=== PATIENT | female | born 1945 | race Caucasian/White ===

== ENCOUNTER 2021-10-28 14:31 | Observation (INO) | payer MEDICARE, OTHER ==
[2021-10-28] MEDS ORDERED: Sodium Chloride 0.9% 10 ML Syringe FLUSH PRN (15:00)
[2021-10-28] MEDS ORDERED: Sodium Chloride 0.9% 1,000 ML IV SCH ×3 (15:15→17:45)
--- NOTE | 2021-10-28 17:28 | EDM.PDOC ---
ED HPI GENERAL MEDICAL PROBLEM - General Chief Complaint: General Stated Complaint: FELL AT [facility] Time Seen by Provider: 10/28/21 14:45 Source of Information: Reports: Patient History Limitations: Reports: No Limitations - History of Present Illness INITIAL COMMENTS - FREE TEXT/NARRATIVE: Patient is a 76 YO WF who presented to the ED via EMS because she fell while at [facility]. She said her entire body just feel weak and her kegs gave out. There was no LOC after the fall and didn't sustain any injury. There is no headache, nausea or vomiting. No changes in bowel movements or urinary symptoms. - Related Data Allergies Allergy/AdvReac Type Severity Reaction Status Date / Time No Known Allergies Allergy Verified 02/21/19 13:20 Home Meds: Home Meds ALPRAZolam [Alprazolam] 0.25 mg PO BEDTIME 10/28/21 [History] Aspirin 81 mg PO DAILY 10/28/21 [History] Escitalopram Oxalate [Lexapro] 20 mg PO DAILY 10/28/21 [History] Famotidine 40 mg PO Q48H 10/28/21 [History] Gabapentin [Neurontin] 100 mg PO BID@08,12 10/28/21 [History] Gabapentin [Neurontin] 200 mg PO BEDTIME 10/28/21 [History] Levothyroxine [Synthroid] 50 mcg PO SUTUTHSA 10/28/21 [History] Levothyroxine [Synthroid] 75 mcg PO MOWEFR 10/28/21 [History] Omeprazole 20 mg PO Q48H 10/28/21 [History] Simvastatin 40 mg PO BEDTIME 10/28/21 [History] lisinopriL [Lisinopril] 10 mg PO DAILY 10/28/21 [History] traZODone 50 mg PO BEDTIME 10/28/21 [History] ED ROS GENERAL - Review of Systems Review Of Systems: See Below Constitutional: Reports: Weakness HEENT: Reports: No Symptoms Respiratory: Reports: No Symptoms Cardiovascular: Reports: No Symptoms Endocrine: Reports: No Symptoms GI/Abdominal: Reports: No Symptoms : Reports: No Symptoms Musculoskeletal: Reports: No Symptoms Skin: Reports: No Symptoms Neurological: Reports: Weakness Psychiatric: Reports: No Symptoms ED EXAM, GENERAL - Physical Exam Exam: See Below Exam Limited By: Other (have problem communicating) Eye Exam: Bilateral Eye: PERRL Ears: Normal External Exam, Normal Canal Nose: Normal Inspection, Normal Mucosa, No Blood Throat/Mouth: Normal Inspection, Normal Lips, Normal Teeth Head: Atraumatic, Normocephalic Neck: Normal Inspection, Supple, Non-Tender, Full Range of Motion Respiratory/Chest: No Respiratory Distress, Lungs Clear, Normal Breath Sounds, No Accessory Muscle Use, Chest Non-Tender Cardiovascular: Normal Peripheral Pulses, Regular Rate, Rhythm, No Edema, No Gallop, No JVD, No Murmur, No Rub GI/Abdominal: Normal Bowel Sounds, Soft, Non-Tender, No Organomegaly, No Distention Back Exam: Normal Inspection, Full Range of Motion Extremities: Normal Inspection, Normal Range of Motion, Non-Tender, No Pedal Edema Neurological: Alert, Oriented, CN II-XII Intact, Normal Cognition, Normal Gait, Normal Reflexes Psychiatric: Normal Affect Skin Exam: Warm #1 Interpretation EKG Date: 10/28/21 Time: 14:41 Rhythm: NSR Rate (Beats/Min): 66 [place]: Normal P-Wave: Present QRS: Normal ST-T: Normal QT: Normal OK/PQ Interval: 141 Comparison: NA - No Prior EKG EKG Interpretation Comments: NSR Course - Orders/Labs/Meds Orders: Active Orders 24 hr Category Date Time Status Patient Status [ADT] Routine ADT 10/28/21 17:37 Active Bladder Scan [RC] ASDIRECTED Care 10/28/21 17:26 Active Mckeon Catheter Insertion [Insert Urinary Catheter] [OM. Care 10/28/21 18:30 Ordered PC] Q24H Height and Weight [RC] DAILY Care 10/28/21 17:36 Active Intake and Output [RC] QSHIFT Care 10/28/21 17:39 Active Oxygen Therapy [RC] PRN Care 10/28/21 17:37 Active Pulse Oximetry [RC] PRN Care 10/28/21 17:40 Active Up With Assistance [RC] ASDIRECTED Care 10/28/21 17:36 Active Urinary Catheter Assessment [RC] QSHIFT Care 10/28/21 18:27 Ordered VTE/DVT Education [RC] Per Unit Routine Care 10/28/21 17:37 Active Vital Signs [RC] Q4H Care 10/28/21 17:37 Active Chest 1V Frontal [CR] Stat Exams 10/28/21 17:47 Taken BASIC METABOLIC PANEL,BMP [CHEM] AM Lab 10/29/21 05:11 Ordered CBC WITH AUTO DIFF [HEME] AM Lab 10/29/21 05:11 Ordered UA W/MICROSCOPIC [URIN] Stat Lab 10/28/21 15:00 Ordered Enoxaparin [Lovenox] Med 10/28/21 18:00 Active 30 mg SUBCUT Q24H Sodium Chloride 0.9% [Normal Saline] 1,000 ml Med 10/28/21 15:15 Active IV ASDIRECTED Sodium Chloride 0.9% [Normal Saline] 1,000 ml Med 10/28/21 16:30 Active IV ASDIRECTED Sodium Chloride 0.9% [Normal Saline] 1,000 ml Med 10/28/21 17:45 Active IV ASDIRECTED Sodium Chloride 0.9% [Normal Saline] 1,000 ml Med 10/28/21 17:45 Active IV ASDIRECTED Sodium Chloride 0.9% [Saline Flush] Med 10/28/21 15:00 Active 10 ml FLUSH ASDIRECTED PRN Saline Lock Insert [OM.PC] Routine Oth 10/28/21 15:00 Ordered Sequential Compression Device [OM.PC] Per Unit Routine Oth 10/28/21 17:41 Ordered Resuscitation Status Routine Resus Stat 10/28/21 17:36 Ordered EKG 12 Lead [EK] Routine Ther 10/28/21 15:00 Ordered Medication Orders Enoxaparin Sodium (Enoxaparin 30 Mg/0.3 Ml Syringe) 30 mg SUBCUT Q24H PORFIRIO Sodium Chloride (Normal Saline) 1,000 mls @ 999 mls/hr IV ASDIRECTED PORFIRIO Last Admin: 10/28/21 15:08 Dose: 999 mls/hr Documented by: JAVIESCHE Sodium Chloride (Normal Saline) 1,000 mls @ 999 mls/hr IV ASDIRECTED PORFIRIO Last Admin: 10/28/21 16:30 Dose: 999 mls/hr Documented by: WIESCHE Sodium Chloride (Normal Saline) 1,000 mls @ 125 mls/hr IV ASDIRECTED PORFIRIO Last Admin: 10/28/21 17:31 Dose: 125 mls/hr Documented by: WIESCHE Sodium Chloride (Normal Saline) 1,000 mls @ 125 mls/hr IV ASDIRECTED PORFIRIO Sodium Chloride (Sodium Chloride 0.9% 10 Ml Syringe) 10 ml FLUSH ASDIRECTED PRN PRN Reason: Keep Vein Open Last Admin: 10/28/21 14:38 Dose: 10 ml Documented by: CAROL Labs: Laboratory Tests 10/28/21 10/28/21 10/28/21 Range/Units 15:15 15:15 15:15 WBC 7.7 (3.0-10.3) x10-3/uL RBC 4.07 (3.60-5.20) x10(6)uL Hgb 12.6 (11.4-15.5) g/dL Hct 38.0 (34.2-48.2) % MCV 93.4 (76.7-100.5) fL MCH 31.1 (23.9-33.9) pg MCHC 33.3 (31.9-34.8) g/dL RDW 13.1 (12.3-16.5) % Plt Count 193 (151-488) x10(3)uL MPV 9.5 (7.1-12.4) fL Neut % (Auto) 65.5 (30.8-76.2) % Lymph % (Auto) 25.9 (18.4-52.1) % [place] % (Auto) 6.1 (4.4-15.7) % Eos % (Auto) 1.7 (0.6-8.1) % Baso % (Auto) 0.8 (0.2-1.5) % Neut # (Auto) 5.1 (1.5-6.3) x10-3/uL Lymph # (Auto) 2.0 (1.0-4.4) x10-3/uL [place] # (Auto) 0.5 (0.3-1.0) x10-3/uL Eos # (Auto) 0.1 (0.0-0.8) x10-3/uL Baso # (Auto) 0.1 (0.0-0.1) x10-3/uL Sodium 138 (135-145) mmol/L Potassium 4.0 (3.5-5.3) mmol/L Chloride 102 (100-110) mmol/L Carbon Dioxide 20 L (21-32) mmol/L BUN 143 H* (7-18) mg/dL Creatinine 5.5 H* (0.55-1.02) mg/dL Est Cr Clr Drug Dosing TNP Estimated GFR (MDRD) 8 L (>60) BUN/Creatinine Ratio 26.0 H (9-20) Glucose 112 (80-116) mg/dL Lactic Acid (0.4-2.0) mmol/L Calcium 9.5 (8.6-10.2) mg/dL Total Bilirubin 0.3 (0.1-1.3) mg/dL AST 21 (5-25) IU/L ALT 25 (12-36) U/L Alkaline Phosphatase 77 (56-112) IU/L Troponin I 32.1 (4.0-60.3) pg/mL Total Protein 7.5 (6.0-8.0) g/dL Albumin 4.4 (3.2-4.6) g/dL Globulin 3.1 g/dL Albumin/Globulin Ratio 1.4 SARS-CoV-2 RNA (IDALIA) (NEGATIVE) 10/28/21 10/28/21 Range/Units 15:15 16:25 WBC (3.0-10.3) x10-3/uL RBC (3.60-5.20) x10(6)uL Hgb (11.4-15.5) g/dL Hct (34.2-48.2) % MCV (76.7-100.5) fL MCH (23.9-33.9) pg MCHC (31.9-34.8) g/dL RDW (12.3-16.5) % Plt Count (151-488) x10(3)uL MPV (7.1-12.4) fL Neut % (Auto) (30.8-76.2) % Lymph % (Auto) (18.4-52.1) % [place] % (Auto) (4.4-15.7) % Eos % (Auto) (0.6-8.1) % Baso % (Auto) (0.2-1.5) % Neut # (Auto) (1.5-6.3) x10-3/uL Lymph # (Auto) (1.0-4.4) x10-3/uL [place] # (Auto) (0.3-1.0) x10-3/uL Eos # (Auto) (0.0-0.8) x10-3/uL Baso # (Auto) (0.0-0.1) x10-3/uL Sodium (135-145) mmol/L Potassium (3.5-5.3) mmol/L Chloride (100-110) mmol/L Carbon Dioxide (21-32) mmol/L BUN (7-18) mg/dL Creatinine (0.55-1.02) mg/dL Est Cr Clr Drug Dosing Estimated GFR (MDRD) (>60) BUN/Creatinine Ratio (9-20) Glucose (80-116) mg/dL Lactic Acid 0.8 (0.4-2.0) mmol/L Calcium (8.6-10.2) mg/dL Total Bilirubin (0.1-1.3) mg/dL AST (5-25) IU/L ALT (12-36) U/L Alkaline Phosphatase (56-112) IU/L Troponin I (4.0-60.3) pg/mL Total Protein (6.0-8.0) g/dL Albumin (3.2-4.6) g/dL Globulin g/dL Albumin/Globulin Ratio SARS-CoV-2 RNA (IDALIA) Negative (NEGATIVE) Meds: Medications Generic Name Dose Route Start Last Admin Trade Name Freq PRN Reason Stop Dose Admin Enoxaparin Sodium 30 mg 10/28/21 18:00 Enoxaparin 30 Mg/0.3 Ml Syringe SUBCUT Q24H PORFIRIO Sodium Chloride 1,000 mls @ 999 mls/hr 10/28/21 15:15 10/28/21 15:08 Normal Saline IV 999 mls/hr ASDIRECTED PORFIRIO Administration Sodium Chloride 1,000 mls @ 999 mls/hr 10/28/21 16:30 10/28/21 16:30 Normal Saline IV 999 mls/hr ASDIRECTED PORFIRIO Administration Sodium Chloride 1,000 mls @ 125 mls/hr 10/28/21 17:45 10/28/21 17:31 Normal Saline IV 125 mls/hr ASDIRECTED PORFIRIO Administration Sodium Chloride 1,000 mls @ 125 mls/hr 10/28/21 17:45 Normal Saline IV ASDIRECTED PORFIRIO Sodium Chloride 10 ml 10/28/21 15:00 10/28/21 14:38 Sodium Chloride 0.9% 10 Ml Syringe FLUSH 10 ml ASDIRECTED PRN Administration Keep Vein Open Discontinued Medications Generic Name Dose Route Start Last Admin Trade Name Freq PRN Reason Stop Dose Admin Enoxaparin Sodium 30 mg 10/28/21 17:45 Enoxaparin 30 Mg/0.3 Ml Syringe SUBCUT Q24H [facility] Departure - Departure Time of Disposition: 15:00 Disposition: Refer to Observation Condition: Good Clinical Impression: Fall, Dehydration, SALUD (acute kidney injury), Urinary retention - Discharge Information Referrals: Eva Calderon, [employer] [Primary Care Provider] - Forms: ED Department Discharge - My Orders Last 24 Hours: My Active Orders 10/28/21 15:00 UA W/MICROSCOPIC [URIN] Stat Sodium Chloride 0.9% [Saline Flush] 10 ml FLUSH ASDIRECTED PRN Saline Lock Insert [OM.PC] Routine EKG 12 Lead [EK] Routine 10/28/21 15:15 Sodium Chloride 0.9% [Normal Saline] 1,000 ml IV ASDIRECTED 10/28/21 16:30 Sodium Chloride 0.9% [Normal Saline] 1,000 ml IV ASDIRECTED 10/28/21 17:26 Bladder Scan [RC] ASDIRECTED 10/28/21 17:36 Height and Weight [RC] DAILY Up With Assistance [RC] ASDIRECTED Resuscitation Status Routine 10/28/21 17:37 Patient Status [ADT] Routine Oxygen Therapy [RC] PRN VTE/DVT Education [RC] Per Unit Routine Vital Signs [RC] Q4H 10/28/21 17:39 Intake and Output [RC] QSHIFT 10/28/21 17:40 Pulse Oximetry [RC] PRN 10/28/21 17:41 Sequential Compression Device [OM.PC] Per Unit Routine 10/28/21 17:45 Sodium Chloride 0.9% [Normal Saline] 1,000 ml IV ASDIRECTED Sodium Chloride 0.9% [Normal Saline] 1,000 ml IV ASDIRECTED 10/28/21 17:47 Chest 1V Frontal [CR] Stat 10/28/21 18:00 Enoxaparin [Lovenox] 30 mg SUBCUT Q24H 10/28/21 18:27 Urinary Catheter Assessment [RC] QSHIFT 10/28/21 18:30 Mckeon Catheter Insertion [Insert Urinary Catheter] [OM.PC] Q24H 10/29/21 05:11 BASIC METABOLIC PANEL,BMP [CHEM] AM CBC WITH AUTO DIFF [HEME] AM - Assessment/Plan Last 24 Hours: My Active Orders 10/28/21 15:00 UA W/MICROSCOPIC [URIN] Stat Sodium Chloride 0.9% [Saline Flush] 10 ml FLUSH ASDIRECTED PRN Saline Lock Insert [OM.PC] Routine EKG 12 Lead [EK] Routine 10/28/21 15:15 Sodium Chloride 0.9% [Normal Saline] 1,000 ml IV ASDIRECTED 10/28/21 16:30 Sodium Chloride 0.9% [Normal Saline] 1,000 ml IV ASDIRECTED 10/28/21 17:26 Bladder Scan [RC] ASDIRECTED 10/28/21 17:36 Height and Weight [RC] DAILY Up With Assistance [RC] ASDIRECTED Resuscitation Status Routine 10/28/21 17:37 Patient Status [ADT] Routine Oxygen Therapy [RC] PRN VTE/DVT Education [RC] Per Unit Routine Vital Signs [RC] Q4H 10/28/21 17:39 Intake and Output [RC] QSHIFT 10/28/21 17:40 Pulse Oximetry [RC] PRN 10/28/21 17:41 Sequential Compression Device [OM.PC] Per Unit Routine 10/28/21 17:45 Sodium Chloride 0.9% [Normal Saline] 1,000 ml IV ASDIRECTED Sodium Chloride 0.9% [Normal Saline] 1,000 ml IV ASDIRECTED 10/28/21 17:47 Chest 1V Frontal [CR] Stat 10/28/21 18:00 Enoxaparin [Lovenox] 30 mg SUBCUT Q24H 10/28/21 18:27 Urinary Catheter Assessment [RC] QSHIFT 10/28/21 18:30 Mckeon Catheter Insertion [Insert Urinary Catheter] [OM.PC] Q24H 10/29/21 05:11 BASIC METABOLIC PANEL,BMP [CHEM] AM CBC WITH AUTO DIFF [HEME] AM
[2021-10-28] MEDS: Sodium Chloride 0.9% 1,000 ML IV SCH (17:31)
[2021-10-28] MEDS ORDERED: Enoxaparin 30 MG/0.3 ML Syringe SUBCUT SCH ×3 (17:45→21:00)
[2021-10-28] MEDS ORDERED: Levothyroxine 50 MCG Tab**PT OWN PO SCH (19:00)
[2021-10-28] MEDS ORDERED: ALPRAZolam 0.25 MG Tab PO SCH (21:00)
[2021-10-28] MEDS ORDERED: SIMVASTATIN 40 MG PO SCH (21:00)
[2021-10-28] MEDS ORDERED: Gabapentin 100 MG Cap *PTOM PO SCH (21:00)
[2021-10-29] MEDS: Sodium Chloride 0.9% 1,000 ML IV SCH ×2 (01:33→09:51)
[2021-10-29] MEDS ORDERED: Levothyroxine 50 MCG Tab**PT OWN PO SCH (07:00)
[2021-10-29] MEDS ORDERED: Famotidine 20 MG Tab *PTOM PO SCH (08:00)
[2021-10-29] MEDS: GABAPENTIN 100 MG PO SCH ×2 (08:48→12:20)
[2021-10-29] MEDS ORDERED: Escitalopram 20 MG Tab *PTOM PO SCH (09:00)
[2021-10-29] MEDS ORDERED: Heparin Sodium 5,000 Units/ML Vial SUBCUT SCH (09:00)
[2021-10-29] MEDS ORDERED: Lisinopril 10 MG Tab *PTOM PO SCH (09:00)
--- NOTE | 2021-10-29 09:52 | PCM.HP.2 ---
H&P History of Present Illness - General Date of Service: 10/29/21 Admit Problem/Dx: Admission Diagnosis/Problem Admission Diagnosis/Problem Fall Source of Information: Patient, EMS History Limitations: Reports: No Limitations (Speech impediment) - History of Present Illness Initial Comments - Free Text/Narative: This is a 76-year-old female patient that has trouble speech. I was told that her speech is baseline for her at this time. She was at [facility] and she felt weak and her legs gave out and she fell. She was brought to the ER by EMS. No loss of conscious after the fall and she did not sustain any injuries. She denies fevers, chills, chest pain, shortness of breath, dysuria, pyuria, hematuria. She was found to have acute kidney injury with a creatinine over 5.0. She denies any NSAID use. She uses Tylenol arthritis. - Related Data Allergies/Adverse Reactions: Allergies Allergy/AdvReac Type Severity Reaction Status Date / Time No Known Allergies Allergy Verified 02/21/19 13:20 Home Medications: Home Meds ALPRAZolam [Alprazolam] 0.25 mg PO BEDTIME 10/28/21 [History] Aspirin 81 mg PO DAILY 10/28/21 [History] Escitalopram Oxalate [Lexapro] 20 mg PO DAILY 10/28/21 [History] Famotidine 40 mg PO Q48H 10/28/21 [History] Gabapentin [Neurontin] 100 mg PO BID@08,12 10/28/21 [History] Gabapentin [Neurontin] 200 mg PO BEDTIME 10/28/21 [History] Levothyroxine [Synthroid] 50 mcg PO SUTUTHSA 10/28/21 [History] Levothyroxine [Synthroid] 75 mcg PO MOWEFR 10/28/21 [History] Omeprazole 20 mg PO Q48H 10/28/21 [History] Simvastatin 40 mg PO BEDTIME 10/28/21 [History] lisinopriL [Lisinopril] 10 mg PO DAILY 10/28/21 [History] traZODone 50 mg PO BEDTIME 10/28/21 [History] Past Medical History - Past Health History Medical/Surgical History: Denies Medical/Surgical History Social & Family History - Tobacco Use Tobacco Use Status *Q: Never Tobacco User Second Hand Smoke Exposure: No - Caffeine Use Caffeine Use: Reports: None - Recreational Drug Use Recreational Drug Use: No H&P Review of Systems - Review of Systems: Review Of Systems: See Below General: Reports: Weakness HEENT: Reports: No Symptoms Pulmonary: Reports: No Symptoms Cardiovascular: Reports: No Symptoms Gastrointestinal: Reports: No Symptoms Genitourinary: Reports: No Symptoms Musculoskeletal: Reports: No Symptoms Skin: Reports: No Symptoms Psychiatric: Reports: No Symptoms Neurological: Reports: No Symptoms Hematologic/Lymphatic: Reports: No Symptoms Immunologic: Reports: No Symptoms Exam - Exam Exam: See Below - Vital Signs Vital Signs: Last Vital Signs Temp 98 F 10/29/21 05:00 Pulse 67 10/29/21 05:00 Resp 16 10/29/21 05:00 BP 119/50 L 10/29/21 08:48 Pulse Ox 96 10/29/21 05:00 Weight: 197 lb - Exam General: Alert, Oriented, Cooperative HEENT: PERRLA, Posterior Pharynx Clear, TMs Clear Neck: Supple, Trachea Midline Lungs: Clear to Auscultation, Normal Respiratory Effort Cardiovascular: Regular Rate, Regular Rhythm. No: Systolic Murmur GI/Abdominal Exam: Normal Bowel Sounds, Soft, Non-Tender, No Organomegaly, No Distention, No Abnormal Bruit, No Mass Back Exam: Normal Inspection, Full Range of Motion Extremities: Normal Inspection, Normal Range of Motion, No Pedal Edema, Other (Normal strength in all 4 extremities. I did not stand her.) Skin: Warm, Dry, Intact Neurological: Normal Tone. No: Normal Speech Neuro Extensive - Mental Status: Alert, Oriented x3, Normal Cognition Psychiatric: Alert, Normal Affect, Normal Mood - Patient Data Lab Results Last 24 hrs: Laboratory Results - last 24 hr 10/28/21 10/28/21 10/28/21 Range/Units 15:15 15:15 15:15 WBC 7.7 (3.0-10.3) x10-3/uL RBC 4.07 (3.60-5.20) x10(6)uL Hgb 12.6 (11.4-15.5) g/dL Hct 38.0 (34.2-48.2) % MCV 93.4 (76.7-100.5) fL MCH 31.1 (23.9-33.9) pg MCHC 33.3 (31.9-34.8) g/dL RDW 13.1 (12.3-16.5) % Plt Count 193 (151-488) x10(3)uL MPV 9.5 (7.1-12.4) fL Neut % (Auto) 65.5 (30.8-76.2) % Lymph % (Auto) 25.9 (18.4-52.1) % Cassia % (Auto) 6.1 (4.4-15.7) % Eos % (Auto) 1.7 (0.6-8.1) % Baso % (Auto) 0.8 (0.2-1.5) % Neut # (Auto) 5.1 (1.5-6.3) x10-3/uL Lymph # (Auto) 2.0 (1.0-4.4) x10-3/uL Cassia # (Auto) 0.5 (0.3-1.0) x10-3/uL Eos # (Auto) 0.1 (0.0-0.8) x10-3/uL Baso # (Auto) 0.1 (0.0-0.1) x10-3/uL Sodium 138 (135-145) mmol/L Potassium 4.0 (3.5-5.3) mmol/L Chloride 102 (100-110) mmol/L Carbon Dioxide 20 L (21-32) mmol/L BUN 143 H* (7-18) mg/dL Creatinine 5.5 H* (0.55-1.02) mg/dL Est Cr Clr Drug Dosing TNP Estimated GFR (MDRD) 8 L (>60) BUN/Creatinine Ratio 26.0 H (9-20) Glucose 112 (80-116) mg/dL Lactic Acid (0.4-2.0) mmol/L Calcium 9.5 (8.6-10.2) mg/dL Total Bilirubin 0.3 (0.1-1.3) mg/dL AST 21 (5-25) IU/L ALT 25 (12-36) U/L Alkaline Phosphatase 77 (56-112) IU/L Troponin I 32.1 (4.0-60.3) pg/mL Total Protein 7.5 (6.0-8.0) g/dL Albumin 4.4 (3.2-4.6) g/dL Globulin 3.1 g/dL Albumin/Globulin Ratio 1.4 Urine Color (YELLOW) Urine Appearance (CLEAR) Urine pH (5.0-6.5) Ur Specific Elizabeth (1.010-1.025) Urine Protein (NEGATIVE) mg/dL Urine Glucose (UA) (NORMAL) mg/dL Urine Ketones (NEGATIVE) mg/dL Urine Occult Blood (NEGATIVE) Urine Nitrite (NEGATIVE) Urine Bilirubin (NEGATIVE) Urine Urobilinogen (NEGATIVE) mg/dL Ur Leukocyte Esterase (NEGATIVE) Urine RBC (0-5) Urine WBC (0-5) Ur Squamous Epith Cells (NS,R,O) Urine Bacteria (NS) Urine Mucus (NS) SARS-CoV-2 RNA (IDALIA) (NEGATIVE) 10/28/21 10/28/21 10/29/21 Range/Units 15:15 16:25 01:57 WBC (3.0-10.3) x10-3/uL RBC (3.60-5.20) x10(6)uL Hgb (11.4-15.5) g/dL Hct (34.2-48.2) % MCV (76.7-100.5) fL MCH (23.9-33.9) pg MCHC (31.9-34.8) g/dL RDW (12.3-16.5) % Plt Count (151-488) x10(3)uL MPV (7.1-12.4) fL Neut % (Auto) (30.8-76.2) % Lymph % (Auto) (18.4-52.1) % Cassia % (Auto) (4.4-15.7) % Eos % (Auto) (0.6-8.1) % Baso % (Auto) (0.2-1.5) % Neut # (Auto) (1.5-6.3) x10-3/uL Lymph # (Auto) (1.0-4.4) x10-3/uL Cassia # (Auto) (0.3-1.0) x10-3/uL Eos # (Auto) (0.0-0.8) x10-3/uL Baso # (Auto) (0.0-0.1) x10-3/uL Sodium (135-145) mmol/L Potassium (3.5-5.3) mmol/L Chloride (100-110) mmol/L Carbon Dioxide (21-32) mmol/L BUN (7-18) mg/dL Creatinine (0.55-1.02) mg/dL Est Cr Clr Drug Dosing Estimated GFR (MDRD) (>60) BUN/Creatinine Ratio (9-20) Glucose (80-116) mg/dL Lactic Acid 0.8 (0.4-2.0) mmol/L Calcium (8.6-10.2) mg/dL Total Bilirubin (0.1-1.3) mg/dL AST (5-25) IU/L ALT (12-36) U/L Alkaline Phosphatase (56-112) IU/L Troponin I (4.0-60.3) pg/mL Total Protein (6.0-8.0) g/dL Albumin (3.2-4.6) g/dL Globulin g/dL Albumin/Globulin Ratio Urine Color Yellow (YELLOW) Urine Appearance Slightly cloudy (CLEAR) Urine pH 5.0 (5.0-6.5) Ur Specific Elizabeth 1.020 (1.010-1.025) Urine Protein Negative (NEGATIVE) mg/dL Urine Glucose (UA) Normal (NORMAL) mg/dL Urine Ketones Negative (NEGATIVE) mg/dL Urine Occult Blood Moderate H (NEGATIVE) Urine Nitrite Negative (NEGATIVE) Urine Bilirubin Negative (NEGATIVE) Urine Urobilinogen Normal (NEGATIVE) mg/dL Ur Leukocyte Esterase Negative (NEGATIVE) Urine RBC 0-5 (0-5) Urine WBC 0-5 (0-5) Ur Squamous Epith Cells Few H (NS,R,O) Urine Bacteria Few H (NS) Urine Mucus Few H (NS) SARS-CoV-2 RNA (IDALIA) Negative (NEGATIVE) 10/29/21 10/29/21 Range/Units 06:16 06:16 WBC 5.6 (3.0-10.3) x10-3/uL RBC 3.48 L (3.60-5.20) x10(6)uL Hgb 10.9 L (11.4-15.5) g/dL Hct 32.5 L (34.2-48.2) % MCV 93.6 (76.7-100.5) fL MCH 31.5 (23.9-33.9) pg MCHC 33.6 (31.9-34.8) g/dL RDW 13.2 (12.3-16.5) % Plt Count 162 (151-488) x10(3)uL MPV 9.1 (7.1-12.4) fL Neut % (Auto) 50.3 (30.8-76.2) % Lymph % (Auto) 37.2 (18.4-52.1) % Cassia % (Auto) 7.2 (4.4-15.7) % Eos % (Auto) 4.2 (0.6-8.1) % Baso % (Auto) 1.1 (0.2-1.5) % Neut # (Auto) 2.8 (1.5-6.3) x10-3/uL Lymph # (Auto) 2.1 (1.0-4.4) x10-3/uL Cassia # (Auto) 0.4 (0.3-1.0) x10-3/uL Eos # (Auto) 0.2 (0.0-0.8) x10-3/uL Baso # (Auto) 0.1 (0.0-0.1) x10-3/uL Sodium 145 (135-145) mmol/L Potassium 3.7 (3.5-5.3) mmol/L Chloride 113 H D (100-110) mmol/L Carbon Dioxide 18 L (21-32) mmol/L BUN 118 H* (7-18) mg/dL Creatinine 3.8 H* (0.55-1.02) mg/dL Est Cr Clr Drug Dosing 10.58 Estimated GFR (MDRD) 12 L (>60) BUN/Creatinine Ratio 31.1 H (9-20) Glucose 93 (80-116) mg/dL Lactic Acid (0.4-2.0) mmol/L Calcium 8.0 L (8.6-10.2) mg/dL Total Bilirubin (0.1-1.3) mg/dL AST (5-25) IU/L ALT (12-36) U/L Alkaline Phosphatase (56-112) IU/L Troponin I (4.0-60.3) pg/mL Total Protein (6.0-8.0) g/dL Albumin (3.2-4.6) g/dL Globulin g/dL Albumin/Globulin Ratio Urine Color (YELLOW) Urine Appearance (CLEAR) Urine pH (5.0-6.5) Ur Specific Elizabeth (1.010-1.025) Urine Protein (NEGATIVE) mg/dL Urine Glucose (UA) (NORMAL) mg/dL Urine Ketones (NEGATIVE) mg/dL Urine Occult Blood (NEGATIVE) Urine Nitrite (NEGATIVE) Urine Bilirubin (NEGATIVE) Urine Urobilinogen (NEGATIVE) mg/dL Ur Leukocyte Esterase (NEGATIVE) Urine RBC (0-5) Urine WBC (0-5) Ur Squamous Epith Cells (NS,R,O) Urine Bacteria (NS) Urine Mucus (NS) SARS-CoV-2 RNA (IDALIA) (NEGATIVE) Result Diagrams: 10/29/21 06:16 10/29/21 06:16 Sepsis Event Note - Evaluation Sepsis Screening Result: No Definite Risk - Focused Exam Vital Signs: Vital Signs Temp Pulse Resp BP BP Pulse Ox 10/29/21 08:48 119/50 L 10/29/21 05:00 98 F 67 16 100/55 L 96 - Problem List (1) Palliative care status SNOMED Code(s): 865186397 ICD Code: Z51.5 - ENCOUNTER FOR PALLIATIVE CARE Status: Acute Current Visit: Yes (2) SALUD (acute kidney injury) SNOMED Code(s): 49385732, 94664893 ICD Code: N17.9 - ACUTE KIDNEY FAILURE, UNSPECIFIED Status: Acute Current Visit: Yes (3) Dehydration SNOMED Code(s): 05369541 ICD Code: E86.0 - DEHYDRATION Status: Acute Current Visit: Yes (4) Fall SNOMED Code(s): 1731042, 219314140 ICD Code: W19.XXXA - UNSPECIFIED FALL, INITIAL ENCOUNTER Status: Acute Current Visit: Yes Problem List Initiated/Reviewed/Updated: Yes Orders Last 24hrs: Active Orders 24 hr Category Date Time Status Patient Status [ADT] Routine ADT 10/28/21 17:37 Active Bladder Scan [RC] ASDIRECTED Care 10/28/21 17:26 Active Mckeon Catheter Insertion [Insert Urinary Catheter] [OM. Care 10/28/21 18:30 Ordered PC] Q24H Height and Weight [RC] 0600 Care 10/28/21 17:36 Active Intake and Output [RC] 22,06,14 Care 10/28/21 17:39 Active Oxygen Therapy [RC] PRN Care 10/28/21 17:37 Active Pulse Oximetry [RC] PRN Care 10/28/21 17:40 Active Up With Assistance [RC] ASDIRECTED Care 10/28/21 17:36 Active Urinary Catheter Assessment [RC] QSHIFT Care 10/28/21 18:27 Active VTE/DVT Education [RC] Per Unit Routine Care 10/28/21 17:37 Active Vital Signs [RC] Q4H Care 10/28/21 17:37 Active Regular Diet [DIET] Diet 10/29/21 Breakfast Active Chest 1V Frontal [CR] Stat Exams 10/28/21 17:47 Taken ALPRAZolam [Xanax] Med 10/28/21 21:00 Active 0.25 mg PO BEDTIME Enoxaparin [Lovenox] Med 10/28/21 21:00 Active 30 mg SUBCUT Q24H Escitalopram [Lexapro] Med 10/29/21 09:00 Active 20 mg PO DAILY Famotidine [Pepcid] Med 10/29/21 08:00 Active 40 mg PO Q48H Gabapentin [Neurontin] Med 10/29/21 08:00 Active 100 mg PO BID@08,12 Gabapentin [Neurontin] Med 10/28/21 21:00 Active 200 mg PO BEDTIME Levothyroxine [Synthroid] Med 10/28/21 19:00 Active 50 mcg PO SuTuThSa@0700 Levothyroxine [Synthroid] Med 10/29/21 07:00 Active 75 mcg PO MoWeFr@0700 Omeprazole [Omeprazole] Med 10/30/21 08:00 Active 20 mg PO Q48H Simvastatin [Zocor] Med 10/28/21 21:00 Active 40 mg PO BEDTIME Sodium Chloride 0.9% [Normal Saline] 1,000 ml Med 10/28/21 15:15 Active IV ASDIRECTED Sodium Chloride 0.9% [Normal Saline] 1,000 ml Med 10/28/21 16:30 Active IV ASDIRECTED Sodium Chloride 0.9% [Normal Saline] 1,000 ml Med 10/28/21 17:45 Active IV ASDIRECTED Sodium Chloride 0.9% [Normal Saline] 1,000 ml Med 10/28/21 17:45 Active IV ASDIRECTED Sodium Chloride 0.9% [Saline Flush] Med 10/28/21 15:00 Active 10 ml FLUSH ASDIRECTED PRN lisinopriL [Prinivil] Med 10/29/21 09:00 Active 10 mg PO DAILY Saline Lock Insert [OM.PC] Routine Oth 10/28/21 15:00 Ordered Sequential Compression Device [OM.PC] Per Unit Routine Oth 10/28/21 17:41 Ordered Resuscitation Status Routine Resus Stat 10/28/21 17:36 Ordered EKG 12 Lead [EK] Routine Ther 10/28/21 15:00 Ordered Medication Orders Alprazolam (Alprazolam 0.25 Mg Tab) 0.25 mg PO BEDTIME [facility], [facility] Last Admin: 10/28/21 21:00 Dose: Not Given Documented by: JANIS Enoxaparin Sodium (Enoxaparin 30 Mg/0.3 Ml Syringe) 30 mg SUBCUT Q24H [facility], [facility]1983 Last Admin: 10/28/21 21:23 Dose: 30 mg Documented by: JANIS Escitalopram Oxalate (Escitalopram 20 Mg Tab *Ptom) 20 mg PO DAILY [facility] Last Admin: 10/29/21 08:47 Dose: 20 mg Documented by: HARLEEN Famotidine (Famotidine 20 Mg Tab *Ptom) 40 mg PO Q48H [facility] Last Admin: 10/29/21 08:47 Dose: 40 mg Documented by: HARLEEN Gabapentin (Gabapentin 100 Mg *Ptom) 100 mg PO BID@08,12 [facility] Last Admin: 10/29/21 08:48 Dose: 100 mg Documented by: HARLEEN Gabapentin (Gabapentin 100 Mg Cap *Ptom) 200 mg PO BEDTIME [facility]1983 Last Admin: 10/28/21 21:00 Dose: Not Given Documented by: JANIS Sodium Chloride (Normal Saline) 1,000 mls @ 999 mls/hr IV ASDIRECTED [facility], [facility]1983 Last Admin: 10/28/21 15:08 Dose: 999 mls/hr Documented by: CAROL Sodium Chloride (Normal Saline) 1,000 mls @ 999 mls/hr IV ASDIRECTED [facility], [facility] Last Admin: 10/28/21 16:30 Dose: 999 mls/hr Documented by: CAROL Sodium Chloride (Normal Saline) 1,000 mls @ 125 mls/hr IV ASDIRECTED [facility] Last Admin: 10/29/21 01:33 Dose: 125 mls/hr Documented by: Infusion: 10/29/21 01:31 Dose: 125 mls/hr Documented by: Admin: 10/28/21 17:31 Dose: 125 mls/hr Documented by: CAROL Sodium Chloride (Normal Saline) 1,000 mls @ 125 mls/hr IV ASDIRECTED [facility] Levothyroxine Sodium (Levothyroxine 50 Mcg TabPt Own) 50 mcg PO SuTuThSa@0700 [facility] Last Admin: 10/28/21 21:00 Dose: Not Given Documented by: JANIS Levothyroxine Sodium (Levothyroxine 50 Mcg TabPt Own) 75 mcg PO MoWeFr@0700 [facility] Last Admin: 10/29/21 06:33 Dose: 75 mcg Documented by: JANIS Lisinopril (Lisinopril 10 Mg Tab *Ptom) 10 mg PO DAILY [facility] Last Admin: 10/29/21 08:48 Dose: 10 mg Documented by: HARLEEN Omeprazole 20 Mg Cap (.Cr *Ptom) 20 mg PO Q48H [facility] Simvastatin (Simvastatin 40 Mg *Ptom) 40 mg PO BEDTIME [facility] Last Admin: 10/28/21 21:00 Dose: Not Given Documented by: JANIS Sodium Chloride (Sodium Chloride 0.9% 10 Ml Syringe) 10 ml FLUSH ASDIRECTED PRN PRN Reason: Keep Vein Open Last Admin: 10/28/21 14:38 Dose: 10 ml Documented by: CAROL Assessment/Plan Comment:: . Admit to observation. 2. Regular diet 3. IV fluids 4. Mckeon catheter to monitor urine output 5. Lovenox for DVT prophylaxis that will be dosed by pharmacy. 6. Up with assist. 7. Recheck creatinine at the end of the day. 8. Hold lisinopril and review medications that are nephrotoxic. 9. Get old records from [facility] for her past medical history. Difficult getting a history from her today because of her speech impediment. - Mortality Measure Prognosis:: Good
--- NOTE | 2021-10-29 17:23 | PCM.DCSUM1 ---
Discharge Summary - Hospital Course Free Text/Narrative:: Hospital course-patient was admitted and was given boluses of fluid. She felt better by the time I saw her she was feeling good. Her creatinine started out at 5.5 and by the morning went to 3.8. Patient was adamant she wanted to go home in the morning. I told her wait to the end of the day. Rechecked her creatinine was 3.2. Calcium and hemoglobin little low after fluids. Patient ambulated without any difficulty and had no problems with food intake. I was able to retrieve the last note that she had at . And her creatinine there was 3.34 and BUN was 61 on 10/22/2021. I do not have any information that I kidney work-up has been started. On January 18, 2021 her creatinine was 0.9. Patient denies using any nephrotoxic drugs including NSAIDs. Brief History: This is a 76-year-old female patient that has trouble speech. I was told that her speech is baseline for her at this time. She was at [facility] and she felt weak and her legs gave out and she fell. She was brought to the ER by EMS. No loss of conscious after the fall and she did not sustain any injuries. She denies fevers, chills, chest pain, shortness of breath, dysuria, pyuria, hematuria. She was found to have acute kidney injury with a creatinine over 5.0. She denies any NSAID use. She uses Tylenol arthritis. Diagnosis: Stroke: No - Discharge Data Discharge Date: 10/29/21 Discharge Disposition: Home, Self-Care 01 Condition: Good - Referral to Home Health Primary Care Physician: Eva Calderon NP - Discharge Diagnosis/Problem(s) (1) Palliative care status SNOMED Code(s): 721526061 ICD Code: Z51.5 - ENCOUNTER FOR PALLIATIVE CARE Status: Acute Current Visit: Yes (2) SALUD (acute kidney injury) SNOMED Code(s): 97374176, 01413214 ICD Code: N17.9 - ACUTE KIDNEY FAILURE, UNSPECIFIED Status: Acute Current Visit: Yes (3) Dehydration SNOMED Code(s): 44767899 ICD Code: E86.0 - DEHYDRATION Status: Acute Current Visit: Yes (4) Fall SNOMED Code(s): 0232835, 292330393 ICD Code: W19.XXXA - UNSPECIFIED FALL, INITIAL ENCOUNTER Status: Acute Current Visit: Yes - Patient Instructions Diet: Regular Diet as Tolerated Activity: As Tolerated Driving: May Drive Today Showering/Bathing: May Shower Notify Provider of: Increased Pain Other/Special Instructions: 1. Hold lisinopril/omeprazole until she sees her primary provider. 2. She needs to drink at least 64 ounces of water a day which is 416 ounce water bottles. 3. Avoid NSAIDs. 4. Recheck with her primary provider in 1 week. - Discharge Plan Home Medications: Home Meds ALPRAZolam [Alprazolam] 0.25 mg PO BEDTIME 10/28/21 [History] Aspirin 81 mg PO DAILY 10/28/21 [History] Escitalopram Oxalate [Lexapro] 20 mg PO DAILY 10/28/21 [History] Famotidine 40 mg PO Q48H 10/28/21 [History] Gabapentin [Neurontin] 100 mg PO BID@08,12 10/28/21 [History] Gabapentin [Neurontin] 200 mg PO BEDTIME 10/28/21 [History] Levothyroxine [Synthroid] 50 mcg PO SUTUTHSA 10/28/21 [History] Levothyroxine [Synthroid] 75 mcg PO MOWEFR 10/28/21 [History] Simvastatin 40 mg PO BEDTIME 10/28/21 [History] traZODone 50 mg PO BEDTIME 10/28/21 [History] Patient Handouts: Acute Kidney Injury, Adult, Dehydration, Adult, [id number], Fall Prevention in Hospitals, Adult, Venous Thromboembolism Prevention Forms: ED Department Discharge Referrals: Eva Calderon [facility] [Primary Care Provider] - - Discharge Summary/Plan Comment DC Time >30 min.: No Total # of Minutes for Discharge Time: 15 minutes Discharge Summary/Plan Comment: 1. See your primary provider in 1 week. 2. Minimum 64 ounces of water a day. 3. Hold lisinopril/omeprazole until she sees her primary provider. - Patient Data Vitals - Most Recent: Last Vital Signs Temp 98.4 F 10/29/21 16:00 Pulse 67 10/29/21 16:00 Resp 16 10/29/21 16:00 BP 113/50 L 10/29/21 16:00 Pulse Ox 98 10/29/21 16:00 Weight - Most Recent: 197 lb I&O - Last 24 hours: Intake & Output 10/29/21 10/29/21 10/29/21 06:59 14:59 22:59 Intake Total 1014 Output Total 700 400 Balance 314 -400 Lab Results - Last 24 hrs: Laboratory Results - last 24 hr 10/28/21 10/29/21 10/29/21 Range/Units 16:25 01:57 06:16 WBC 5.6 (3.0-10.3) x10-3/uL RBC 3.48 L (3.60-5.20) x10(6)uL Hgb 10.9 L (11.4-15.5) g/dL Hct 32.5 L (34.2-48.2) % MCV 93.6 (76.7-100.5) fL MCH 31.5 (23.9-33.9) pg MCHC 33.6 (31.9-34.8) g/dL RDW 13.2 (12.3-16.5) % Plt Count 162 (151-488) x10(3)uL MPV 9.1 (7.1-12.4) fL Neut % (Auto) 50.3 (30.8-76.2) % Lymph % (Auto) 37.2 (18.4-52.1) % Slope % (Auto) 7.2 (4.4-15.7) % Eos % (Auto) 4.2 (0.6-8.1) % Baso % (Auto) 1.1 (0.2-1.5) % Neut # (Auto) 2.8 (1.5-6.3) x10-3/uL Lymph # (Auto) 2.1 (1.0-4.4) x10-3/uL Slope # (Auto) 0.4 (0.3-1.0) x10-3/uL Eos # (Auto) 0.2 (0.0-0.8) x10-3/uL Baso # (Auto) 0.1 (0.0-0.1) x10-3/uL Sodium (135-145) mmol/L Potassium (3.5-5.3) mmol/L Chloride (100-110) mmol/L Carbon Dioxide (21-32) mmol/L BUN (7-18) mg/dL Creatinine (0.55-1.02) mg/dL Est Cr Clr Drug Dosing mL/min Estimated GFR (MDRD) (>60) BUN/Creatinine Ratio (9-20) Glucose (80-116) mg/dL Calcium (8.6-10.2) mg/dL Urine Color Yellow (YELLOW) Urine Appearance Slightly cloudy (CLEAR) Urine pH 5.0 (5.0-6.5) Ur Specific [place] 1.020 (1.010-1.025) Urine Protein Negative (NEGATIVE) mg/dL Urine Glucose (UA) Normal (NORMAL) mg/dL Urine Ketones Negative (NEGATIVE) mg/dL Urine Occult Blood Moderate H (NEGATIVE) Urine Nitrite Negative (NEGATIVE) Urine Bilirubin Negative (NEGATIVE) Urine Urobilinogen Normal (NEGATIVE) mg/dL Ur Leukocyte Esterase Negative (NEGATIVE) Urine RBC 0-5 (0-5) Urine WBC 0-5 (0-5) Ur Squamous Epith Cells Few H (NS,R,O) Urine Bacteria Few H (NS) Urine Mucus Few H (NS) SARS-CoV-2 RNA (IDALIA) Negative (NEGATIVE) 10/29/21 10/29/21 Range/Units 06:16 16:10 WBC (3.0-10.3) x10-3/uL RBC (3.60-5.20) x10(6)uL Hgb (11.4-15.5) g/dL Hct (34.2-48.2) % MCV (76.7-100.5) fL MCH (23.9-33.9) pg MCHC (31.9-34.8) g/dL RDW (12.3-16.5) % Plt Count (151-488) x10(3)uL MPV (7.1-12.4) fL Neut % (Auto) (30.8-76.2) % Lymph % (Auto) (18.4-52.1) % [place]ope % (Auto) (4.4-15.7) % Eos % (Auto) (0.6-8.1) % Baso % (Auto) (0.2-1.5) % Neut # (Auto) (1.5-6.3) x10-3/uL Lymph # (Auto) (1.0-4.4) x10-3/uL [place] # (Auto) (0.3-1.0) x10-3/uL Eos # (Auto) (0.0-0.8) x10-3/uL Baso # (Auto) (0.0-0.1) x10-3/uL Sodium 145 142 (135-145) mmol/L Potassium 3.7 3.9 (3.5-5.3) mmol/L Chloride 113 H D 110 (100-110) mmol/L Carbon Dioxide 18 L 19 L (21-32) mmol/L BUN 118 H* 100 H D (7-18) mg/dL Creatinine 3.8 H* 3.2 H* (0.55-1.02) mg/dL Est Cr Clr Drug Dosing 10.58 12.56 mL/min Estimated GFR (MDRD) 12 L 14 L (>60) BUN/Creatinine Ratio 31.1 H 31.3 H (9-20) Glucose 93 96 (80-116) mg/dL Calcium 8.0 L 8.2 L (8.6-10.2) mg/dL Urine Color (YELLOW) Urine Appearance (CLEAR) Urine pH (5.0-6.5) Ur Specific [place] (1.010-1.025) Urine Protein (NEGATIVE) mg/dL Urine Glucose (UA) (NORMAL) mg/dL Urine Ketones (NEGATIVE) mg/dL Urine Occult Blood (NEGATIVE) Urine Nitrite (NEGATIVE) Urine Bilirubin (NEGATIVE) Urine Urobilinogen (NEGATIVE) mg/dL Ur Leukocyte Esterase (NEGATIVE) Urine RBC (0-5) Urine WBC (0-5) Ur Squamous Epith Cells (NS,R,O) Urine Bacteria (NS) Urine Mucus (NS) SARS-CoV-2 RNA (IDALIA) (NEGATIVE) Med Orders - Current: Current Medications Alprazolam (Alprazolam 0.25 Mg Tab) 0.25 mg PO BEDTIME COUNTS INCLUDE 234 BEDS AT THE [facility] Last Admin: 10/28/21 21:00 Dose: Not Given Documented by: Escitalopram Oxalate (Escitalopram 20 Mg Tab *Ptom) 20 mg PO DAILY COUNTS INCLUDE 234 BEDS AT THE [facility] Last Admin: 10/29/21 08:47 Dose: 20 mg Documented by: Famotidine (Famotidine 20 Mg Tab *Ptom) 40 mg PO Q48H COUNTS INCLUDE 234 BEDS AT THE [facility] Last Admin: 10/29/21 08:47 Dose: 40 mg Documented by: Gabapentin (Gabapentin 100 Mg *Ptom) 100 mg PO BID@08,12 COUNTS INCLUDE 234 BEDS AT THE [facility] Last Admin: 10/29/21 12:20 Dose: 100 mg Documented by: Gabapentin (Gabapentin 100 Mg Cap *Ptom) 200 mg PO BEDTIME COUNTS INCLUDE 234 BEDS AT THE [facility] Last Admin: 10/28/21 21:00 Dose: Not Given Documented by: Heparin Sodium (Porcine) (Heparin Sodium 5,000 Units/Ml Vial) 5,000 units SUBCUT Q12H COUNTS INCLUDE 234 BEDS AT THE [facility] Last Admin: 10/29/21 10:13 Dose: 5,000 units Documented by: Sodium Chloride (Normal Saline) 1,000 mls @ 999 mls/hr IV ASDIRECTED COUNTS INCLUDE 234 BEDS AT THE [facility] Last Admin: 10/28/21 15:08 Dose: 999 mls/hr Documented by: Sodium Chloride (Normal Saline) 1,000 mls @ 999 mls/hr IV ASDIRECTED COUNTS INCLUDE 234 BEDS AT THE [facility] Last Admin: 10/28/21 16:30 Dose: 999 mls/hr Documented by: Sodium Chloride (Normal Saline) 1,000 mls @ 125 mls/hr IV ASDIRECTED COUNTS INCLUDE 234 BEDS AT THE [facility] Last Admin: 10/29/21 09:51 Dose: 125 mls/hr Documented by: Sodium Chloride (Normal Saline) 1,000 mls @ 125 mls/hr IV ASDIRECTED COUNTS INCLUDE 234 BEDS AT THE [facility] Levothyroxine Sodium (Levothyroxine 50 Mcg TabPt Own) 50 mcg PO SuTuThSa@0700 COUNTS INCLUDE 234 BEDS AT THE [facility] Last Admin: 10/28/21 21:00 Dose: Not Given Documented by: Levothyroxine Sodium (Levothyroxine 50 Mcg TabPt Own) 75 mcg PO MoWeFr@0700 COUNTS INCLUDE 234 BEDS AT THE [facility] Last Admin: 10/29/21 06:33 Dose: 75 mcg Documented by: Omeprazole 20 Mg Cap (.Cr *Ptom) 20 mg PO Q48H COUNTS INCLUDE 234 BEDS AT THE [facility] Simvastatin (Simvastatin 40 Mg *Ptom) 40 mg PO BEDTIME COUNTS INCLUDE 234 BEDS AT THE [facility] Last Admin: 10/28/21 21:00 Dose: Not Given Documented by: Sodium Chloride (Sodium Chloride 0.9% 10 Ml Syringe) 10 ml FLUSH ASDIRECTED PRN PRN Reason: Keep Vein Open Last Admin: 10/28/21 14:38 Dose: 10 ml Documented by: Discontinued Medications Enoxaparin Sodium (Enoxaparin 30 Mg/0.3 Ml Syringe) 30 mg SUBCUT Q24H COUNTS INCLUDE 234 BEDS AT THE [facility] Last Admin: 10/28/21 23:34 Dose: Not Given Documented by: Enoxaparin Sodium (Enoxaparin 30 Mg/0.3 Ml Syringe) 30 mg SUBCUT Q24H COUNTS INCLUDE 234 BEDS AT THE [facility] Last Admin: 10/28/21 23:34 Dose: Not Given Documented by: Enoxaparin Sodium (Enoxaparin 30 Mg/0.3 Ml Syringe) 30 mg SUBCUT Q24H COUNTS INCLUDE 234 BEDS AT THE [facility] Last Admin: 10/28/21 21:23 Dose: 30 mg Documented by: Lisinopril (Lisinopril 10 Mg Tab *Ptom) 10 mg PO DAILY COUNTS INCLUDE 234 BEDS AT THE [facility] Last Admin: 10/29/21 08:48 Dose: 10 mg Documented by:
== END 2021-10-29 18:15 | disposition home or self-care (01) ==
LOC: FB.ED 14:31 → FB.MS 17:37
PROVIDERS: ADMIT Emergency Medicine; ATTEND Family Medicine
DX: N17.9 Acute kidney failure, unspecified (principal); E86.0 Dehydration; R47.89 Other speech disturbances; Z79.899 Other long term (current) drug therapy; Z79.82 Long term (current) use of aspirin; Z20.822 Contact with and (suspected) exposure to COVID-19
CPT/HCPCS: 36415; 51702; 71045; 80048; 80053; 81001; 83605; 84484; 85025; 93005; 99285; A9270; J1644; J1650; J7030; U0002; 96367; 96372; G0378

== ENCOUNTER 2022-06-09 10:04 | Inpatient (IN) | payer MEDICARE, OTHER ==
[2022-06-09 15:43] LABS: ESTIMATED GFR 66 mL/min (>60)
[2022-06-09] MEDS ORDERED: Iopamidol 755 Mg/ML 75 ML Bottle IV ONE (16:03)
[2022-06-09] MEDS ORDERED: Non-Formulary Medication 1 Each (Denosumab [Prolia] 60 MG/ML Syringe) SUBCUT SCH (16:45)
[2022-06-09] MEDS ORDERED: cefTRIAXone 2 GM in Sodium Chloride 0.9% 50 ML IV ONE (16:51)
[2022-06-09] MEDS ORDERED: cefTRIAXone 2 GM Vial IVPUSH SCH (17:00)
[2022-06-09] MEDS ORDERED: cefTRIAXone 2 GM Vial IVPUSH ONE (17:00)
[2022-06-09] MEDS: Azithromycin 500 MG in Sodium Chloride 0.9% 250 ML IV SCH (17:04)
[2022-06-09] MEDS: Sodium Chloride 0.9% 1,000 ML IV SCH (17:10)
[2022-06-09] MEDS: Codeine/guaiFENesin 10-100 MG/5 ML Syrup 5 ML Cup PO PRN (20:46)
[2022-06-09] MEDS ORDERED: Escitalopram 20 MG Tab *PTOM PO SCH (21:00)
[2022-06-09] MEDS: Acetaminophen 650 MG Tab.ER PO SCH ×2 (21:09→21:17)
[2022-06-09] MEDS: Simvastatin 40 MG Tab *PTOM PO SCH ×2 (21:09→21:17)
[2022-06-09] MEDS: ALPRAZolam 0.25 MG Tab PO SCH ×2 (21:10→21:18)
[2022-06-09] MEDS: Gabapentin 100 MG Cap *PTOM PO SCH ×2 (21:11→21:17)
[2022-06-09] MEDS: Enoxaparin 40 MG/0.4 ML Syringe SUBCUT SCH (21:13)
[2022-06-10] MEDS: Sodium Chloride 0.9% 1,000 ML IV SCH (00:40)
[2022-06-10] MEDS ORDERED: Levothyroxine 50 MCG Tab *PTOM PO SCH (06:00)
[2022-06-10 07:10] LABS: ESTIMATED GFR 90 mL/min (>60)
[2022-06-10] MEDS ORDERED: Codeine/guaiFENesin 10-100 MG/5 ML Syrup 5 ML Cup PO PRN (08:24)
[2022-06-10] MEDS: Codeine/guaiFENesin 10-100 MG/5 ML Syrup 5 ML Cup PO PRN (08:33)
[2022-06-10] MEDS: Acetaminophen 650 MG Tab.ER PO SCH ×3 (08:34→20:13)
[2022-06-10] MEDS: Gabapentin 100 MG Cap *PTOM PO SCH (08:38)
[2022-06-10] MEDS: Aspirin 81 MG Tab.Chew PO SCH (08:40)
[2022-06-10] MEDS ORDERED: VIT E ACETATE PO SCH (09:00)
[2022-06-10] MEDS ORDERED: LUTEIN PO SCH (09:00)
[2022-06-10] MEDS ORDERED: VIT C PO SCH (09:00)
[2022-06-10] MEDS ORDERED: VITAMIN D3 PO SCH (09:00)
[2022-06-10] MEDS ORDERED: CALCIUM CARBONATE PO SCH (09:00)
[2022-06-10] MEDS: guaiFENesin 600 MG Tab.ER PO SCH ×2 (12:27→20:10)
[2022-06-10] MEDS: Gabapentin 100 MG Cap PO SCH ×2 (15:02→20:06)
[2022-06-10] MEDS ORDERED: cefTRIAXone 1 GM in Sodium Chloride 0.9% 50 ML IV SCH (17:00)
[2022-06-10] MEDS: Azithromycin 500 MG in Sodium Chloride 0.9% 250 ML IV SCH (17:03)
[2022-06-10] MEDS: cefTRIAXone 1 GM Vial IVPUSH SCH (18:23)
[2022-06-10] MEDS: Escitalopram 20 MG Tab PO SCH (20:09)
[2022-06-10] MEDS: Enoxaparin 40 MG/0.4 ML Syringe SUBCUT SCH (20:11)
[2022-06-10] MEDS: Simvastatin 40 MG Tab PO SCH (20:12)
[2022-06-10] MEDS: MELATONIN 10 MG PO SCH (20:17)
[2022-06-10] MEDS: ALPRAZolam 0.25 MG Tab PO SCH (20:23)
[2022-06-11] MEDS: ALPRAZolam 0.25 MG Tab PO SCH ×2 (04:00→20:58)
[2022-06-11] MEDS: MELATONIN 10 MG PO SCH ×2 (04:00→20:59)
[2022-06-11] MEDS ORDERED: Levothyroxine 50 MCG Tab *PTOM PO SCH (06:00)
[2022-06-11] MEDS: Levothyroxine 50 MCG Tab PO SCH (06:15)
[2022-06-11 06:37] LABS: ESTIMATED GFR 90 mL/min (>60)
[2022-06-11] MEDS: Aspirin 81 MG Tab.Chew PO SCH (08:52)
[2022-06-11] MEDS: Calcium Carbonate 500 MG Tablet PO SCH (08:53)
[2022-06-11] MEDS: Famotidine 20 MG Tab PO SCH (08:54)
[2022-06-11] MEDS: Acetaminophen 650 MG Tab.ER PO SCH ×3 (08:54→20:52)
[2022-06-11] MEDS: guaiFENesin 600 MG Tab.ER PO SCH ×2 (08:57→20:52)
[2022-06-11] MEDS: Lutein/Minerals/Vitamin C/Vitamin E Acetate Cap PO SCH (08:57)
[2022-06-11] MEDS ORDERED: Famotidine 20 MG Tab *PTOM PO SCH (09:00)
[2022-06-11] MEDS: Gabapentin 100 MG Cap PO SCH ×3 (09:02→20:58)
[2022-06-11] MEDS ORDERED: Magnesium Hydroxide 400 MG/5 ML Susp 30 ML Cup PO PRN (11:15)
[2022-06-11] MEDS: cefTRIAXone 1 GM Vial IVPUSH SCH (16:53)
[2022-06-11] MEDS: Azithromycin 500 MG in Sodium Chloride 0.9% 250 ML IV SCH (16:53)
[2022-06-11] MEDS: Enoxaparin 40 MG/0.4 ML Syringe SUBCUT SCH (20:51)
[2022-06-11] MEDS: Simvastatin 40 MG Tab PO SCH (20:53)
[2022-06-11] MEDS: Escitalopram 20 MG Tab PO SCH (20:53)
[2022-06-12] MEDS: Levothyroxine 50 MCG Tab PO SCH (05:05)
[2022-06-12] MEDS: Aspirin 81 MG Tab.Chew PO SCH (08:36)
[2022-06-12] MEDS: Acetaminophen 650 MG Tab.ER PO SCH ×3 (08:37→20:51)
[2022-06-12] MEDS: Calcium Carbonate 500 MG Tablet PO SCH (08:37)
[2022-06-12] MEDS: guaiFENesin 600 MG Tab.ER PO SCH (08:37)
[2022-06-12] MEDS: Lutein/Minerals/Vitamin C/Vitamin E Acetate Cap PO SCH (08:37)
[2022-06-12] MEDS: Gabapentin 100 MG Cap PO SCH ×3 (08:39→20:50)
[2022-06-12] MEDS: Acetylcysteine 20% 200 MG/ML 30 ML Nebulizer Soln SDV NEB SCH ×2 (13:28→20:50)
[2022-06-12] MEDS ORDERED: Acetylcysteine 20% 200 MG/ML 30 ML Nebulizer Soln SDV NEB SCH (14:00)
[2022-06-12] MEDS: cefTRIAXone 1 GM Vial IVPUSH SCH (17:28)
[2022-06-12] MEDS: Azithromycin 500 MG in Sodium Chloride 0.9% 250 ML IV SCH (17:29)
[2022-06-12] MEDS: ALPRAZolam 0.25 MG Tab PO SCH (20:50)
[2022-06-12] MEDS: Escitalopram 20 MG Tab PO SCH (20:52)
[2022-06-12] MEDS: Enoxaparin 40 MG/0.4 ML Syringe SUBCUT SCH (20:52)
[2022-06-12] MEDS: Simvastatin 40 MG Tab PO SCH (20:54)
[2022-06-12] MEDS: MELATONIN 10 MG PO SCH (21:38)
[2022-06-13] MEDS ORDERED: Levothyroxine 75 MCG Tab PO SCH (06:00)
[2022-06-13 06:50] LABS: ESTIMATED GFR 90 mL/min (>60)
[2022-06-13] MEDS: Aspirin 81 MG Tab.Chew PO SCH (08:57)
[2022-06-13] MEDS: Acetylcysteine 20% 200 MG/ML 30 ML Nebulizer Soln SDV NEB SCH ×3 (08:59→21:07)
[2022-06-13] MEDS: Lutein/Minerals/Vitamin C/Vitamin E Acetate Cap PO SCH (09:01)
[2022-06-13] MEDS: Calcium Carbonate 500 MG Tablet PO SCH (09:01)
[2022-06-13] MEDS: Acetaminophen 650 MG Tab.ER PO SCH ×3 (09:02→20:57)
[2022-06-13] MEDS: Famotidine 20 MG Tab PO SCH (09:03)
[2022-06-13] MEDS: Gabapentin 100 MG Cap PO SCH ×3 (09:06→20:53)
[2022-06-13] MEDS: Albuterol 0.083% 2.5 MG/3 ML Neb Soln NEB SCH ×2 (15:26→20:47)
[2022-06-13] MEDS: cefTRIAXone 1 GM Vial IVPUSH SCH (17:20)
[2022-06-13] MEDS: Azithromycin 500 MG in Sodium Chloride 0.9% 250 ML IV SCH (17:40)
[2022-06-13] MEDS: Enoxaparin 40 MG/0.4 ML Syringe SUBCUT SCH (20:51)
[2022-06-13] MEDS: Escitalopram 20 MG Tab PO SCH (20:51)
[2022-06-13] MEDS: Simvastatin 40 MG Tab PO SCH (20:59)
[2022-06-13] MEDS: ALPRAZolam 0.25 MG Tab PO SCH (21:18)
[2022-06-13] MEDS: MELATONIN 10 MG PO SCH (21:28)
[2022-06-13] MEDS: Budesonide 0.5 MG/2 ML Neb Susp NEB SCH (21:30)
[2022-06-14] MEDS: Levothyroxine 50 MCG Tab PO SCH (06:10)
[2022-06-14] MEDS: Gabapentin 100 MG Cap PO SCH (09:06)
[2022-06-14] MEDS: Calcium Carbonate 500 MG Tablet PO SCH (09:06)
[2022-06-14] MEDS: Acetaminophen 650 MG Tab.ER PO SCH (09:06)
[2022-06-14] MEDS: Lutein/Minerals/Vitamin C/Vitamin E Acetate Cap PO SCH (09:06)
[2022-06-14] MEDS: Aspirin 81 MG Tab.Chew PO SCH (09:06)
[2022-06-14] MEDS: Albuterol 0.083% 2.5 MG/3 ML Neb Soln NEB SCH (09:09)
[2022-06-14] MEDS: Budesonide 0.5 MG/2 ML Neb Susp NEB SCH (09:12)
[2022-06-14] MEDS: Acetylcysteine 20% 200 MG/ML 30 ML Nebulizer Soln SDV NEB SCH (09:12)
== END 2022-06-14 13:00 | disposition swing bed (61) | DRG 194 ==
LOC: FB.MS 10:04 → OBSVTOIN 06-10 10:04
PROVIDERS: ADMIT Student in an Organized Health Care Education/Training Program; ATTEND Family Medicine
DX: J18.9 Pneumonia, unspecified organism (principal); R53.1 Weakness; I69.351 Hemiplegia and hemiparesis following cerebral infarction affecting right dominant side; I13.0 Hypertensive heart and chronic kidney disease with heart failure and stage 1 through stage 4 chronic kidney disease, or unspecified chronic kidney disease; R47.1 Dysarthria and anarthria; J98.11 Atelectasis; T17.590A Other foreign object in bronchus causing asphyxiation, initial encounter; F41.8 Other specified anxiety disorders; Z51.5 Encounter for palliative care; N18.31 Chronic kidney disease, stage 3a; F41.9 Anxiety disorder, unspecified; F32.A Depression, unspecified; K21.9 Gastro-esophageal reflux disease without esophagitis; I12.9 Hypertensive chronic kidney disease with stage 1 through stage 4 chronic kidney disease, or unspecified chronic kidney disease; E03.9 Hypothyroidism, unspecified; M19.90 Unspecified osteoarthritis, unspecified site; M81.0 Age-related osteoporosis without current pathological fracture; M79.7 Fibromyalgia; W19.XXXA Unspecified fall, initial encounter; Z79.82 Long term (current) use of aspirin; Z79.899 Other long term (current) drug therapy; Z86.19 Personal history of other infectious and parasitic diseases; Z79.890 Hormone replacement therapy; I69.320 Aphasia following cerebral infarction
CPT/HCPCS: 36415; 70450; 71250; 71275; 80048; 82565; 85025; 85379; 94150; 94640; 94669; 96365; 96372; 96375; 97161-GP; 97165-GO; 99219; 99232; 99233; A9270-GY; G0378; G0379; J0456; J0696; J1650; J7030; J7050; Q9967

== ENCOUNTER 2022-06-14 13:37 | Inpatient (IN) | payer MEDICARE, OTHER ==
[2022-06-14] MEDS ORDERED: Codeine/guaiFENesin 10-100 MG/5 ML Syrup 5 ML Cup PO PRN (13:59)
[2022-06-14] MEDS ORDERED: Magnesium Hydroxide 400 MG/5 ML Susp 30 ML Cup PO PRN (13:59)
[2022-06-14] MEDS: Albuterol 0.083% 2.5 MG/3 ML Neb Soln NEB SCH ×2 (14:40→20:45)
[2022-06-14] MEDS: Acetaminophen 650 MG Tab.ER PO SCH ×2 (14:43→21:05)
[2022-06-14] MEDS: Gabapentin 100 MG Cap PO SCH ×2 (14:43→21:02)
[2022-06-14] MEDS: Acetylcysteine 20% 200 MG/ML 30 ML Nebulizer Soln SDV NEB SCH ×2 (14:46→21:45)
[2022-06-14] MEDS: cefTRIAXone 1 GM Vial IVPUSH SCH (16:50)
[2022-06-14] MEDS: Escitalopram 20 MG Tab PO SCH (21:02)
[2022-06-14] MEDS: MELATONIN 10 MG PO SCH (21:03)
[2022-06-14] MEDS: ALPRAZolam 0.25 MG Tab PO SCH (21:03)
[2022-06-14] MEDS: Simvastatin 40 MG Tab PO SCH (21:06)
[2022-06-14] MEDS: Budesonide 0.5 MG/2 ML Neb Susp NEB SCH (21:06)
[2022-06-15] MEDS: Levothyroxine 75 MCG Tab PO SCH (06:17)
[2022-06-15] MEDS: Aspirin 81 MG Tab.Chew PO SCH (09:07)
[2022-06-15] MEDS: Acetaminophen 650 MG Tab.ER PO SCH ×3 (09:07→21:46)
[2022-06-15] MEDS: Albuterol 0.083% 2.5 MG/3 ML Neb Soln NEB SCH ×3 (09:07→20:38)
[2022-06-15] MEDS: Lutein/Minerals/Vitamin C/Vitamin E Acetate Cap PO SCH (09:08)
[2022-06-15] MEDS: Famotidine 20 MG Tab PO SCH (09:09)
[2022-06-15] MEDS: Calcium Carbonate 500 MG Tablet PO SCH (09:09)
[2022-06-15] MEDS: Gabapentin 100 MG Cap PO SCH ×3 (09:14→21:45)
[2022-06-15] MEDS: Acetylcysteine 20% 200 MG/ML 30 ML Nebulizer Soln SDV NEB SCH ×3 (09:17→21:41)
[2022-06-15] MEDS: Budesonide 0.5 MG/2 ML Neb Susp NEB SCH ×2 (09:23→22:04)
[2022-06-15] MEDS: cefTRIAXone 1 GM Vial IVPUSH SCH (18:55)
[2022-06-15] MEDS ORDERED: Sodium Chloride 0.9% 10 ML Syringe FLUSH PRN (18:55)
[2022-06-15] MEDS: MELATONIN 10 MG PO SCH (21:45)
[2022-06-15] MEDS: Escitalopram 20 MG Tab PO SCH (21:45)
[2022-06-15] MEDS: ALPRAZolam 0.25 MG Tab PO SCH (21:47)
[2022-06-15] MEDS: Simvastatin 40 MG Tab PO SCH (21:47)
[2022-06-16] MEDS: Levothyroxine 50 MCG Tab PO SCH (06:01)
[2022-06-16] MEDS: Albuterol 0.083% 2.5 MG/3 ML Neb Soln NEB SCH ×3 (09:09→20:38)
[2022-06-16] MEDS: Lutein/Minerals/Vitamin C/Vitamin E Acetate Cap PO SCH (09:11)
[2022-06-16] MEDS: Gabapentin 100 MG Cap PO SCH ×3 (09:11→22:21)
[2022-06-16] MEDS: Aspirin 81 MG Tab.Chew PO SCH (09:11)
[2022-06-16] MEDS: Acetaminophen 650 MG Tab.ER PO SCH ×3 (09:12→22:09)
[2022-06-16] MEDS: Calcium Carbonate 500 MG Tablet PO SCH (09:12)
[2022-06-16] MEDS: Acetylcysteine 20% 200 MG/ML 30 ML Nebulizer Soln SDV NEB SCH ×3 (09:15→22:24)
[2022-06-16] MEDS: Budesonide 0.5 MG/2 ML Neb Susp NEB SCH ×2 (09:18→21:30)
[2022-06-16] MEDS: Escitalopram 20 MG Tab PO SCH (22:09)
[2022-06-16] MEDS: Simvastatin 40 MG Tab PO SCH (22:10)
[2022-06-16] MEDS: MELATONIN 10 MG PO SCH (22:10)
[2022-06-16] MEDS: ALPRAZolam 0.25 MG Tab PO SCH (22:21)
[2022-06-17] MEDS: Levothyroxine 75 MCG Tab PO SCH (06:49)
[2022-06-17] MEDS: Calcium Carbonate 500 MG Tablet PO SCH (09:17)
[2022-06-17] MEDS: Aspirin 81 MG Tab.Chew PO SCH (09:17)
[2022-06-17] MEDS: Famotidine 20 MG Tab PO SCH (09:18)
[2022-06-17] MEDS: Lutein/Minerals/Vitamin C/Vitamin E Acetate Cap PO SCH (09:18)
[2022-06-17] MEDS: Acetaminophen 650 MG Tab.ER PO SCH ×3 (09:19→20:34)
[2022-06-17] MEDS: Albuterol 0.083% 2.5 MG/3 ML Neb Soln NEB SCH ×3 (09:19→20:30)
[2022-06-17] MEDS: Gabapentin 100 MG Cap PO SCH ×3 (09:33→21:39)
[2022-06-17] MEDS: Budesonide 0.5 MG/2 ML Neb Susp NEB SCH ×2 (09:33→21:39)
[2022-06-17] MEDS: Acetylcysteine 20% 200 MG/ML 30 ML Nebulizer Soln SDV NEB SCH ×3 (09:34→21:31)
[2022-06-17] MEDS: Simvastatin 40 MG Tab PO SCH (20:35)
[2022-06-17] MEDS: Escitalopram 20 MG Tab PO SCH (21:33)
[2022-06-17] MEDS: MELATONIN 10 MG PO SCH (21:34)
[2022-06-17] MEDS: ALPRAZolam 0.25 MG Tab PO SCH (21:39)
[2022-06-18] MEDS: Levothyroxine 50 MCG Tab PO SCH (06:39)
[2022-06-18] MEDS: Aspirin 81 MG Tab.Chew PO SCH (08:04)
[2022-06-18] MEDS: Acetaminophen 650 MG Tab.ER PO SCH ×3 (08:05→21:56)
[2022-06-18] MEDS: Lutein/Minerals/Vitamin C/Vitamin E Acetate Cap PO SCH (08:05)
[2022-06-18] MEDS: Calcium Carbonate 500 MG Tablet PO SCH (08:05)
[2022-06-18] MEDS: Gabapentin 100 MG Cap PO SCH ×3 (08:05→21:56)
[2022-06-18] MEDS: Albuterol 0.083% 2.5 MG/3 ML Neb Soln NEB SCH ×3 (08:06→20:41)
[2022-06-18] MEDS: Budesonide 0.5 MG/2 ML Neb Susp NEB SCH ×2 (09:02→21:53)
[2022-06-18] MEDS: Acetylcysteine 20% 200 MG/ML 30 ML Nebulizer Soln SDV NEB SCH ×3 (09:41→21:15)
[2022-06-18] MEDS: Escitalopram 20 MG Tab PO SCH (21:55)
[2022-06-18] MEDS: Simvastatin 40 MG Tab PO SCH (21:56)
[2022-06-18] MEDS: MELATONIN 10 MG PO SCH (21:56)
[2022-06-18] MEDS: ALPRAZolam 0.25 MG Tab PO SCH (21:56)
[2022-06-19] MEDS: Levothyroxine 50 MCG Tab PO SCH (05:40)
[2022-06-19] MEDS: Albuterol 0.083% 2.5 MG/3 ML Neb Soln NEB SCH ×3 (07:30→20:17)
[2022-06-19] MEDS: Lutein/Minerals/Vitamin C/Vitamin E Acetate Cap PO SCH (08:00)
[2022-06-19] MEDS: Gabapentin 100 MG Cap PO SCH ×3 (08:01→22:01)
[2022-06-19] MEDS: Famotidine 20 MG Tab PO SCH (08:01)
[2022-06-19] MEDS: Calcium Carbonate 500 MG Tablet PO SCH (08:01)
[2022-06-19] MEDS: Aspirin 81 MG Tab.Chew PO SCH (08:02)
[2022-06-19] MEDS: Acetaminophen 650 MG Tab.ER PO SCH ×3 (08:02→22:02)
[2022-06-19] MEDS: Acetylcysteine 20% 200 MG/ML 30 ML Nebulizer Soln SDV NEB SCH ×3 (09:20→20:52)
[2022-06-19] MEDS: Budesonide 0.5 MG/2 ML Neb Susp NEB SCH ×2 (09:36→22:03)
[2022-06-19] MEDS: Escitalopram 20 MG Tab PO SCH (22:01)
[2022-06-19] MEDS: MELATONIN 10 MG PO SCH (22:01)
[2022-06-19] MEDS: ALPRAZolam 0.25 MG Tab PO SCH (22:03)
[2022-06-19] MEDS: Simvastatin 40 MG Tab PO SCH (22:03)
[2022-06-20] MEDS: Levothyroxine 75 MCG Tab PO SCH (06:19)
[2022-06-20] MEDS: Albuterol 0.083% 2.5 MG/3 ML Neb Soln NEB SCH (08:48)
[2022-06-20] MEDS: Aspirin 81 MG Tab.Chew PO SCH (08:49)
[2022-06-20] MEDS: Acetylcysteine 20% 200 MG/ML 30 ML Nebulizer Soln SDV NEB SCH (08:49)
[2022-06-20] MEDS: Gabapentin 100 MG Cap PO SCH (08:52)
[2022-06-20] MEDS: Lutein/Minerals/Vitamin C/Vitamin E Acetate Cap PO SCH (08:52)
[2022-06-20] MEDS: Acetaminophen 650 MG Tab.ER PO SCH (08:53)
[2022-06-20] MEDS: Calcium Carbonate 500 MG Tablet PO SCH (08:53)
[2022-06-20] MEDS: Budesonide 0.5 MG/2 ML Neb Susp NEB SCH (08:54)
== END 2022-06-20 12:55 | disposition home or self-care (01) | DRG 194 ==
LOC: UNDOADMIN 13:37 → FB.MS 13:37
PROVIDERS: ADMIT Family Medicine; ATTEND Family Medicine
DX: J18.9 Pneumonia, unspecified organism (principal); J98.11 Atelectasis; T17.500A Unspecified foreign body in bronchus causing asphyxiation, initial encounter; W19.XXXA Unspecified fall, initial encounter; Z51.5 Encounter for palliative care; F41.9 Anxiety disorder, unspecified; F32.A Depression, unspecified; E03.9 Hypothyroidism, unspecified; M19.90 Unspecified osteoarthritis, unspecified site; N18.31 Chronic kidney disease, stage 3a; F41.8 Other specified anxiety disorders; M79.7 Fibromyalgia; K21.9 Gastro-esophageal reflux disease without esophagitis; I69.920 Aphasia following unspecified cerebrovascular disease; Y92.009 Unspecified place in unspecified non-institutional (private) residence as the place of occurrence of the external cause; Z79.890 Hormone replacement therapy; Z79.82 Long term (current) use of aspirin; Z79.899 Other long term (current) drug therapy
CPT/HCPCS: 71250; 94640; 94760; 97116-GP; 97530-GO; 97530-GP; 97535-GO; 99305; 99308; 99316; A9270-GY; J0696

== ENCOUNTER 2024-09-13 19:57 | Inpatient (IN) | payer MEDICARE, OTHER ==
[2024-09-13 20:13] LABS: BASOPHILS PERCENT AUTO 0.3 % (0.2-1.5); EOSINOPHILS ABSOLUTE AUTO 0.3 x10-3/uL (0.0-0.8); EOSINOPHILS PERCENT AUTO 2.2 % (0.6-8.1); HEMATOCRIT 38.1 % (34.2-48.2); HEMOGLOBIN 12.7 g/dL (11.4-15.5); LYMPHOCYTES PERCENT AUTO 17.5 % (18.4-52.1); MEAN CORPUSCULAR HEMOGLOBIN 31.5 pg (23.9-33.9); MEAN CORPUSCULAR HGB CONC 33.3 g/dL (31.9-34.8); MEAN CORPUSCULAR VOLUME 94.8 fL (76.7-100.5); MONOCYTES ABSOLUTE AUTO 0.6 x10-3/uL (0.3-1.0); MONOCYTES PERCENT AUTO 5.5 % (4.4-15.7); NEUTROPHILS ABSOLUTE AUTO 8.7 x10-3/uL (1.5-6.3); NEUTROPHILS PERCENT AUTO 74.5 % (30.8-76.2); PLATELET COUNT,PLT 232 x10(3)uL (151-488); RED BLOOD CELL COUNT 4.02 x10(6)uL (3.60-5.20); RED CELL DISTRIBUTION WIDTH 13.7 % (12.3-16.5); WHITE BLOOD CELL COUNT,WBC 11.7 x10-3/uL (3.0-10.3)
[2024-09-13 20:17] LABS: BLOOD UREA NITROGEN,BUN 19 mg/dL (7-18); BUN/CREATININE RATIO 27.1 (9-20); CALCIUM 9.5 mg/dL (8.6-10.2); CARBON DIOXIDE,CO2 27 mmol/L (21-32); CHLORIDE,CL 101 mmol/L (100-110); CREATININE 0.7 mg/dL (0.55-1.02); ESTIMATED GFR 88 mL/min (>60); GLUCOSE RANDOM 117 mg/dL (80-116); POTASSIUM,K 3.6 mmol/L (3.5-5.3); SODIUM,NA 141 mmol/L (135-145)
[2024-09-13 20:23] LABS: A/G RATIO 1.2; ALANINE AMINOTRANSFERASE,ALT 25 U/L (12-36); ALBUMIN 3.9 g/dL (3.2-4.6); ALKALINE PHOSPHATASE 95 IU/L (56-112); ASPARTATE AMNIOTRANSFERASE,AST 27 IU/L (5-25); BILIRUBIN TOTAL 0.5 mg/dL (0.1-1.3); PROTEIN TOTAL,TP 7.1 g/dL (6.0-8.0)
[2024-09-13 20:28] LABS: INR 0.99 (1.00-1.24); PROTHROMBIN TIME 10.3 sec (9.0-11.1); PTT,PARTIAL THROMBOPLSTIN TIME 20.8 SECONDS (24.4-33.2)
[2024-09-13] MEDS: Iopamidol 755 Mg/ML 100 ML Bottle IV SCH (20:34)
[2024-09-13] MEDS ORDERED: CALCIUM GLUC IN NACL, ISO-OSM 2,000 MG in Premix Bag 1 BAG IV ONE ×2 (20:35→20:36)
[2024-09-13] MEDS: Sodium Chloride 0.9% 1,000 ML IV SCH (20:46)
[2024-09-13] MEDS: Diphtheria,Pertussis(Acell),Tetanus Vaccine 0.5 ML Syringe IM ONE (20:48)
[2024-09-13] MEDS ORDERED: Ketorolac 30 MG/ML SDV IVPUSH ONE (21:04)
[2024-09-13 21:50] LABS: BILIRUBIN,URINE NEGATIVE (NEGATIVE); GLUCOSE,URINE NORMAL (NORMAL); KETONES,URINE 15 mg/dL (NEGATIVE); LEUKOCYTE ESTERASE,URINE NEGATIVE (NEGATIVE); NITRITE,URINE NEGATIVE (NEGATIVE); OCCULT BLOOD,URINE LARGE (NEGATIVE); PH,URINE 6.5 (5.0-6.5); PROTEIN,URINE NEGATIVE (NEGATIVE); UROBILINOGEN,URINE NORMAL (NEGATIVE)
[2024-09-13 21:59] LABS: APPEARANCE,URINE CLEAR (CLEAR); BACTERIA,URINE FEW (NS); COLOR,URINE YELLOW (YELLOW); SQUAMOUS EPITHELIAL CELLS,UR FEW (NS,R,O); WBC,URINE 0-5 (0-5)
[2024-09-14] MEDS: LORazepam 2 MG/ML SDV IVPUSH ONE (00:59)
[2024-09-14] MEDS ORDERED: Ondansetron 4 MG/2 ML SDV IV PRN (05:36)
[2024-09-14] MEDS ORDERED: Acetaminophen/HYDROcodone 325-5 MG Tab PO PRN (05:36)
[2024-09-14] MEDS ORDERED: Sennosides/Docusate Sodium 50-8.6 MG Tab PO PRN (05:36)
[2024-09-14] MEDS ORDERED: Enoxaparin 40 MG/0.4 ML Syringe SUBCUT SCH (05:45)
[2024-09-14] MEDS: Sodium Chloride 0.9% 1,000 ML IV SCH (11:29)
[2024-09-14] MEDS: Nystatin Topical Powder 15 GM Bottle TOP SCH (12:55)
[2024-09-14] MEDS: Levothyroxine 50 MCG Tab PO SCH (15:07)
[2024-09-14] MEDS: Sodium Chloride 0.9% 10 ML Syringe FLUSH PRN (19:31)
[2024-09-14] MEDS: traZODone 50 MG Tab PO SCH (20:09)
[2024-09-14] MEDS: Acetaminophen 325 MG Tab PO PRN (20:09)
[2024-09-14] MEDS: Donepezil 10 MG Tab PO SCH (20:09)
[2024-09-14] MEDS: ALPRAZolam 0.25 MG Tab PO PRN (20:11)
[2024-09-15 06:21] LABS: BASOPHILS ABSOLUTE AUTO 0.1 x10-3/uL (0.0-0.1); BASOPHILS PERCENT AUTO 1.4 % (0.2-1.5); EOSINOPHILS ABSOLUTE AUTO 0.3 x10-3/uL (0.0-0.8); EOSINOPHILS PERCENT AUTO 6.2 % (0.6-8.1); HEMATOCRIT 28.9 % (34.2-48.2); HEMOGLOBIN 9.9 g/dL (11.4-15.5); LYMPHOCYTES ABSOLUTE AUTO 1.5 x10-3/uL (1.0-4.4); LYMPHOCYTES PERCENT AUTO 35.2 % (18.4-52.1); MEAN CORPUSCULAR HEMOGLOBIN 32.5 pg (23.9-33.9); MEAN CORPUSCULAR HGB CONC 34.2 g/dL (31.9-34.8); MEAN CORPUSCULAR VOLUME 94.8 fL (76.7-100.5); MEAN PLATELET VOLUME 7.9 fL (7.1-12.4); MONOCYTES ABSOLUTE AUTO 0.4 x10-3/uL (0.3-1.0); MONOCYTES PERCENT AUTO 9.2 % (4.4-15.7); NEUTROPHILS ABSOLUTE AUTO 2.1 x10-3/uL (1.5-6.3); PLATELET COUNT,PLT 161 x10(3)uL (151-488); RED BLOOD CELL COUNT 3.04 x10(6)uL (3.60-5.20); RED CELL DISTRIBUTION WIDTH 13.8 % (12.3-16.5); WHITE BLOOD CELL COUNT,WBC 4.4 x10-3/uL (3.0-10.3)
[2024-09-15 06:31] LABS: ALANINE AMINOTRANSFERASE,ALT 26 U/L (12-36); ALBUMIN 3.1 g/dL (3.2-4.6); ALKALINE PHOSPHATASE 82 IU/L (56-112); ASPARTATE AMNIOTRANSFERASE,AST 40 IU/L (5-25); BILIRUBIN TOTAL 0.7 mg/dL (0.1-1.3); BLOOD UREA NITROGEN,BUN 9 mg/dL (7-18); CALCIUM 8.8 mg/dL (8.6-10.2); CARBON DIOXIDE,CO2 28 mmol/L (21-32); CHLORIDE,CL 108 mmol/L (100-110); CREATININE 0.6 mg/dL (0.55-1.02); EST CRCL DRUG DOSING (CG) 61.12 mL/min; ESTIMATED GFR 92 mL/min (>60); GLUCOSE RANDOM 94 mg/dL (80-116); POTASSIUM,K 3.6 mmol/L (3.5-5.3); PROTEIN TOTAL,TP 6.1 g/dL (6.0-8.0); SODIUM,NA 145 mmol/L (135-145)
[2024-09-15] MEDS: Escitalopram 20 MG Tab PO SCH (09:37)
[2024-09-15] MEDS: Sodium Chloride 0.9% 1,000 ML IV SCH (11:20)
[2024-09-16 06:31] LABS: BASOPHILS ABSOLUTE AUTO 0.1 x10-3/uL (0.0-0.1); BASOPHILS PERCENT AUTO 1.2 % (0.2-1.5); EOSINOPHILS ABSOLUTE AUTO 0.3 x10-3/uL (0.0-0.8); EOSINOPHILS PERCENT AUTO 5.9 % (0.6-8.1); HEMATOCRIT 28.8 % (34.2-48.2); HEMOGLOBIN 9.7 g/dL (11.4-15.5); LYMPHOCYTES ABSOLUTE AUTO 1.6 x10-3/uL (1.0-4.4); LYMPHOCYTES PERCENT AUTO 33.4 % (18.4-52.1); MEAN CORPUSCULAR HEMOGLOBIN 32.1 pg (23.9-33.9); MEAN CORPUSCULAR HGB CONC 33.5 g/dL (31.9-34.8); MEAN CORPUSCULAR VOLUME 96.1 fL (76.7-100.5); MONOCYTES ABSOLUTE AUTO 0.5 x10-3/uL (0.3-1.0); NEUTROPHILS ABSOLUTE AUTO 2.4 x10-3/uL (1.5-6.3); NEUTROPHILS PERCENT AUTO 49.5 % (30.8-76.2); PLATELET COUNT,PLT 146 x10(3)uL (151-488); RED CELL DISTRIBUTION WIDTH 13.9 % (12.3-16.5); WHITE BLOOD CELL COUNT,WBC 4.9 x10-3/uL (3.0-10.3)
[2024-09-16 06:49] LABS: BLOOD UREA NITROGEN,BUN 15 mg/dL (7-18); CALCIUM 8.6 mg/dL (8.6-10.2); CARBON DIOXIDE,CO2 29 mmol/L (21-32); CHLORIDE,CL 109 mmol/L (100-110); CREATININE 0.6 mg/dL (0.55-1.02); EST CRCL DRUG DOSING (CG) 61.12 mL/min; ESTIMATED GFR 92 mL/min (>60); GLUCOSE RANDOM 95 mg/dL (80-116); POTASSIUM,K 3.9 mmol/L (3.5-5.3); SODIUM,NA 146 mmol/L (135-145)
[2024-09-16 06:51] LABS: CREATINE KINASE,CK 311 IU/L (60-160)
[2024-09-16] MEDS: Levothyroxine 75 MCG Tab PO SCH (07:54)
[2024-09-16] MEDS: Lisinopril 5 MG Tab PO SCH (08:37)
[2024-09-16] MEDS: Escitalopram 20 MG Tab PO SCH (16:31)
[2024-09-16] MEDS: atorvaSTATin 20 MG Tab PO SCH (20:18)
[2024-09-17 06:42] LABS: BASOPHILS ABSOLUTE AUTO 0.1 x10-3/uL (0.0-0.1); BASOPHILS PERCENT AUTO 1.2 % (0.2-1.5); EOSINOPHILS ABSOLUTE AUTO 0.2 x10-3/uL (0.0-0.8); EOSINOPHILS PERCENT AUTO 4.9 % (0.6-8.1); HEMATOCRIT 28.6 % (34.2-48.2); HEMOGLOBIN 9.9 g/dL (11.4-15.5); LYMPHOCYTES ABSOLUTE AUTO 1.5 x10-3/uL (1.0-4.4); LYMPHOCYTES PERCENT AUTO 29.3 % (18.4-52.1); MEAN CORPUSCULAR HGB CONC 34.7 g/dL (31.9-34.8); MEAN PLATELET VOLUME 8.3 fL (7.1-12.4); MONOCYTES ABSOLUTE AUTO 0.4 x10-3/uL (0.3-1.0); MONOCYTES PERCENT AUTO 7.5 % (4.4-15.7); NEUTROPHILS ABSOLUTE AUTO 2.8 x10-3/uL (1.5-6.3); NEUTROPHILS PERCENT AUTO 57.1 % (30.8-76.2); PLATELET COUNT,PLT 177 x10(3)uL (151-488); RED BLOOD CELL COUNT 3.01 x10(6)uL (3.60-5.20); RED CELL DISTRIBUTION WIDTH 13.7 % (12.3-16.5); WHITE BLOOD CELL COUNT,WBC 4.9 x10-3/uL (3.0-10.3)
[2024-09-17 06:49] LABS: BLOOD UREA NITROGEN,BUN 10 mg/dL (7-18); BUN/CREATININE RATIO 16.7 (9-20); CALCIUM 8.9 mg/dL (8.6-10.2); CARBON DIOXIDE,CO2 28 mmol/L (21-32); CHLORIDE,CL 106 mmol/L (100-110); CREATININE 0.6 mg/dL (0.55-1.02); EST CRCL DRUG DOSING (CG) 61.12 mL/min; ESTIMATED GFR 92 mL/min (>60); GLUCOSE RANDOM 102 mg/dL (80-116); POTASSIUM,K 3.6 mmol/L (3.5-5.3); SODIUM,NA 144 mmol/L (135-145)
== END 2024-09-17 13:10 | disposition home health service (06) | DRG 964 ==
LOC: FB.ED 19:57 → FB.MS 09-14 05:36 → OBSVTOIN 09-14 09:50
PROVIDERS: ADMIT Emergency Medicine; ATTEND Internal Medicine
PROC: 0HQ0XZZ Repair Scalp Skin, External Approach (ICD-10-PCS; principal; 2024-09-13)
DX: S06.5X0A Traumatic subdural hemorrhage without loss of consciousness, initial encounter (principal); F01.B3 Vascular dementia, moderate, with mood disturbance; S01.01XA Laceration without foreign body of scalp, initial encounter; S00.83XA Contusion of other part of head, initial encounter; Z86.73 Personal history of transient ischemic attack (TIA), and cerebral infarction without residual deficits; T79.6XXA Traumatic ischemia of muscle, initial encounter; F01.B4 Vascular dementia, moderate, with anxiety; R47.01 Aphasia; Z23 Encounter for immunization; W10.9XXA Fall (on) (from) unspecified stairs and steps, initial encounter; S06.6X0A Traumatic subarachnoid hemorrhage without loss of consciousness, initial encounter; S01.91XA Laceration without foreign body of unspecified part of head, initial encounter; E03.9 Hypothyroidism, unspecified; E78.2 Mixed hyperlipidemia; M19.90 Unspecified osteoarthritis, unspecified site; G47.33 Obstructive sleep apnea (adult) (pediatric); Z98.890 Other specified postprocedural states; Z79.82 Long term (current) use of aspirin; Z79.890 Hormone replacement therapy; Z79.899 Other long term (current) drug therapy; W01.0XXA Fall on same level from slipping, tripping and stumbling without subsequent striking against object, initial encounter
CPT/HCPCS: 12001; 36415; 70450; 71260; 72125; 73560-50; 74177; 80048; 80053; 81001; 82550; 82947; 85025; 85610; 85730; 90715; 94150; 97161-GP; 97165-GO; 99222; 99232; 99238; 99285; A9270-GY; G0378; J2060; J3490; J7030; Q9967

== ENCOUNTER 2024-09-17 18:10 | Inpatient (IN) | payer MEDICARE, OTHER ==
[2024-09-18] MEDS ORDERED: Albuterol 0.083% 2.5 MG/3 ML Neb Soln INH PRN (00:54)
[2024-09-18] MEDS ORDERED: ALPRAZolam 0.25 MG Tab PO PRN (00:54)
[2024-09-18] MEDS: traZODone 50 MG Tab PO SCH (01:12)
[2024-09-18] MEDS: Gabapentin 100 MG Cap PO SCH (01:12)
[2024-09-18] MEDS: Melatonin 3 MG Tab PO SCH (01:12)
[2024-09-18] MEDS: Escitalopram 20 MG Tab PO SCH (01:12)
[2024-09-18] MEDS: Donepezil 10 MG Tab PO SCH (01:12)
[2024-09-18] MEDS: Levothyroxine 50 MCG Tab PO SCH (05:59)
[2024-09-18] MEDS: Magnesium Oxide 400 MG Tab PO SCH (08:50)
[2024-09-18] MEDS: Aspirin 81 MG Tab.EC PO SCH (08:50)
[2024-09-18] MEDS: Acetaminophen 650 MG Tab.ER PO SCH (08:51)
[2024-09-18] MEDS: Famotidine 20 MG Tab PO SCH (08:51)
[2024-09-18] MEDS: Calcium Carbonate 500 MG Tablet PO SCH (08:51)
[2024-09-18] MEDS: Lisinopril 5 MG Tab PO SCH (08:57)
[2024-09-18 09:42] LABS: BASOPHILS ABSOLUTE AUTO 0.1 x10-3/uL (0.0-0.1); BASOPHILS PERCENT AUTO 1.4 % (0.2-1.5); EOSINOPHILS ABSOLUTE AUTO 0.2 x10-3/uL (0.0-0.8); EOSINOPHILS PERCENT AUTO 4.2 % (0.6-8.1); HEMATOCRIT 32.2 % (34.2-48.2); HEMOGLOBIN 10.8 g/dL (11.4-15.5); LYMPHOCYTES ABSOLUTE AUTO 1.6 x10-3/uL (1.0-4.4); LYMPHOCYTES PERCENT AUTO 32.5 % (18.4-52.1); MEAN CORPUSCULAR HEMOGLOBIN 32.1 pg (23.9-33.9); MEAN CORPUSCULAR HGB CONC 33.6 g/dL (31.9-34.8); MEAN CORPUSCULAR VOLUME 95.4 fL (76.7-100.5); MEAN PLATELET VOLUME 7.7 fL (7.1-12.4); MONOCYTES ABSOLUTE AUTO 0.4 x10-3/uL (0.3-1.0); MONOCYTES PERCENT AUTO 7.6 % (4.4-15.7); NEUTROPHILS ABSOLUTE AUTO 2.7 x10-3/uL (1.5-6.3); NEUTROPHILS PERCENT AUTO 54.3 % (30.8-76.2); PLATELET COUNT,PLT 244 x10(3)uL (151-488); RED BLOOD CELL COUNT 3.38 x10(6)uL (3.60-5.20); RED CELL DISTRIBUTION WIDTH 13.7 % (12.3-16.5)
[2024-09-18 09:55] LABS: A/G RATIO 1.1; ALANINE AMINOTRANSFERASE,ALT 32 U/L (12-36); ALBUMIN 3.5 g/dL (3.2-4.6); ALKALINE PHOSPHATASE 88 IU/L (56-112); ASPARTATE AMNIOTRANSFERASE,AST 26 IU/L (5-25); BILIRUBIN TOTAL 1.3 mg/dL (0.1-1.3); BLOOD UREA NITROGEN,BUN 13 mg/dL (7-18); BUN/CREATININE RATIO 18.6 (9-20); CARBON DIOXIDE,CO2 30 mmol/L (21-32); CHLORIDE,CL 101 mmol/L (100-110); CREATININE 0.7 mg/dL (0.55-1.02); EST CRCL DRUG DOSING (CG) 52.39 mL/min; ESTIMATED GFR 88 mL/min (>60); GLUCOSE RANDOM 106 mg/dL (80-116); POTASSIUM,K 3.7 mmol/L (3.5-5.3); PROTEIN TOTAL,TP 6.8 g/dL (6.0-8.0); SODIUM,NA 140 mmol/L (135-145)
[2024-09-18] MEDS: Budesonide 0.5 MG/2 ML Neb Susp INH SCH (10:00)
[2024-09-18] MEDS: atorvaSTATin 20 MG Tab PO SCH (20:15)
[2024-09-19] MEDS: Levothyroxine 50 MCG Tab PO SCH (05:40)
[2024-09-20] MEDS: Levothyroxine 75 MCG Tab PO SCH (05:32)
[2024-09-20 06:51] LABS: BASOPHILS ABSOLUTE AUTO 0.1 x10-3/uL (0.0-0.1); BASOPHILS PERCENT AUTO 1.1 % (0.2-1.5); EOSINOPHILS ABSOLUTE AUTO 0.2 x10-3/uL (0.0-0.8); EOSINOPHILS PERCENT AUTO 3.7 % (0.6-8.1); HEMOGLOBIN 10.8 g/dL (11.4-15.5); LYMPHOCYTES ABSOLUTE AUTO 1.5 x10-3/uL (1.0-4.4); MEAN CORPUSCULAR HEMOGLOBIN 32.2 pg (23.9-33.9); MEAN CORPUSCULAR HGB CONC 33.6 g/dL (31.9-34.8); MEAN CORPUSCULAR VOLUME 95.9 fL (76.7-100.5); MEAN PLATELET VOLUME 7.9 fL (7.1-12.4); MONOCYTES ABSOLUTE AUTO 0.5 x10-3/uL (0.3-1.0); NEUTROPHILS ABSOLUTE AUTO 3.5 x10-3/uL (1.5-6.3); NEUTROPHILS PERCENT AUTO 61.2 % (30.8-76.2); PLATELET COUNT,PLT 253 x10(3)uL (151-488); RED BLOOD CELL COUNT 3.33 x10(6)uL (3.60-5.20); RED CELL DISTRIBUTION WIDTH 14.2 % (12.3-16.5); WHITE BLOOD CELL COUNT,WBC 5.8 x10-3/uL (3.0-10.3)
[2024-09-20 06:56] LABS: A/G RATIO 0.9; ALANINE AMINOTRANSFERASE,ALT 25 U/L (12-36); ALBUMIN 3.2 g/dL (3.2-4.6); ALKALINE PHOSPHATASE 89 IU/L (56-112); ASPARTATE AMNIOTRANSFERASE,AST 12 IU/L (5-25); BLOOD UREA NITROGEN,BUN 21 mg/dL (7-18); BUN/CREATININE RATIO 26.3 (9-20); CALCIUM 9.6 mg/dL (8.6-10.2); CARBON DIOXIDE,CO2 33 mmol/L (21-32); CHLORIDE,CL 105 mmol/L (100-110); CREATINE KINASE,CK 67 IU/L (60-160); CREATININE 0.8 mg/dL (0.55-1.02); EST CRCL DRUG DOSING (CG) 45.84 mL/min; ESTIMATED GFR 75 mL/min (>60); GLUCOSE RANDOM 117 mg/dL (80-116); POTASSIUM,K 4.2 mmol/L (3.5-5.3); PROTEIN TOTAL,TP 6.8 g/dL (6.0-8.0); SODIUM,NA 146 mmol/L (135-145)
== END 2024-09-20 17:00 | disposition home health service (06) | DRG 556 ==
LOC: FB.ED 18:10 → FB.MS 20:01
PROVIDERS: ADMIT Internal Medicine; ATTEND Family Medicine
DX: S00.03XA Contusion of scalp, initial encounter (principal); R53.1 Weakness; I67.9 Cerebrovascular disease, unspecified; R26.2 Difficulty in walking, not elsewhere classified; F01.B3 Vascular dementia, moderate, with mood disturbance; F01.B4 Vascular dementia, moderate, with anxiety; N17.9 Acute kidney failure, unspecified; W19.XXXA Unspecified fall, initial encounter; R47.01 Aphasia; R62.7 Adult failure to thrive; M19.90 Unspecified osteoarthritis, unspecified site; E03.9 Hypothyroidism, unspecified; K21.9 Gastro-esophageal reflux disease without esophagitis; E86.0 Dehydration; S00.03XD Contusion of scalp, subsequent encounter; E78.2 Mixed hyperlipidemia; I10 Essential (primary) hypertension; H54.7 Unspecified visual loss; G47.33 Obstructive sleep apnea (adult) (pediatric); Z68.27 Body mass index [BMI] 27.0-27.9, adult; Z98.890 Other specified postprocedural states; Z79.82 Long term (current) use of aspirin; Z79.890 Hormone replacement therapy; Z79.899 Other long term (current) drug therapy; Z86.73 Personal history of transient ischemic attack (TIA), and cerebral infarction without residual deficits; W01.0XXD Fall on same level from slipping, tripping and stumbling without subsequent striking against object, subsequent encounter; Y92.009 Unspecified place in unspecified non-institutional (private) residence as the place of occurrence of the external cause
CPT/HCPCS: 36415; 70450; 80053; 82550; 85025; 94640; 97161-GP; 99222; 99232; 99238; 99285; A9270-GY